=== PATIENT | female | born 1975 | race Caucasian/White ===

== ENCOUNTER 2017-07-12 20:30 | Outpatient (CLI) | payer BC | END 2017-07-12 20:31 | disposition home or self-care (01) | LOC: SLEEPLAB 20:30 | PROVIDERS: ATTEND Family Medicine | DX: G47.33 Obstructive sleep apnea (adult) (pediatric) (principal); E11.9 Type 2 diabetes mellitus without complications; I10 Essential (primary) hypertension; F32.9 Major depressive disorder, single episode, unspecified; E66.9 Obesity, unspecified; F41.9 Anxiety disorder, unspecified | CPT/HCPCS: 95811 ==

== ENCOUNTER 2017-07-14 18:58 | Emergency (ER) | payer BC ==
[2017-07-14] MEDS ORDERED: Ketorolac Tromethamine 30 MG/ML VIAL ONE (20:05)
[2017-07-14] MEDS ORDERED: diphenhydrAMINE 50 MG/ML VIAL ONE (20:05)
[2017-07-14] MEDS ORDERED: Metoclopramide HCl 10 MG/2 ML VIAL ONE (20:05)
--- NOTE | 2017-07-14 20:34 | CT ---
NONCONTRAST HEAD CT: History: Headache. Comparison: None. Technique: Noncontrast head CT is performed from skull base to skull vertex. FINDINGS: No parenchymal hemorrhage. No extraaxial hematoma. No midline shift. Basilar cisterns are patent. Brain volume is age appropriate. Cortical daniels white matter differentiation is preserved. Ventricles and sulci are patent and symmetric. Calvarium is intact. Adequate aeration of the visualized paranasal sinuses. There is sclerosis of joao ateral mastoid air cells. IMPRESSION: No acute intracranial process. POS: [facility]
== END 2017-07-14 22:54 | disposition home or self-care (01) ==
LOC: ERS 18:58
DX: G43.909 Migraine, unspecified, not intractable, without status migrainosus (principal); E11.9 Type 2 diabetes mellitus without complications; I10 Essential (primary) hypertension; Z85.3 Personal history of malignant neoplasm of breast
CPT/HCPCS: 70450; 96361; 96365; 96366; 96375; J1200; J1885; J2765

== ENCOUNTER 2017-07-17 13:23 | Outpatient (CLI) | payer BC ==
[~2017-07-17 13:23] MED LIST: Gadobenate Dimeglumine 529 MG/1 ML (20ML VIAL) ONE
--- NOTE | 2017-07-17 16:12 | MRI ---
MRI OF THE BRAIN WITH AND WITHOUT CONTRAST 07/17/17 INDICATION: Headache with a history of breast cancer. TECHNIQUE: Multiplanar and multisequence MR images were obtained of the brain with and without contrast utilizin g 20 mL of Multihance. Comparisons are made with a noncontrast CT of the brain dated 07/14/17. FINDINGS: No area of restricted diffusion is evident to suggest presence of acute ischemia. No T1 or T2 signal abnormality is seen within the cerebral hemispheres or cerebellum. No area of abnormal enhancement is demonstrated. No area of intracranial hemorrhage is noted. There are appropriate flow voids seen wit hin the major intracranial vessels. Skull and extracranial soft tissues appear within normal limits. IMPRESSION: No acute intracranial abnormality demonstrated. POS: [facility]
== END 2017-07-17 13:24 | disposition home or self-care (01) ==
LOC: MRI 13:23
PROVIDERS: ATTEND Family Medicine
DX: G44.52 New daily persistent headache (NDPH) (principal)
CPT/HCPCS: 70553; A9579

== ENCOUNTER 2017-10-20 07:32 | Outpatient (CLI) | payer BC ==
--- NOTE | 2017-10-20 09:32 | CT ---
CT CHEST WITH IV CONTRAST CT ABDOMEN WITH IV AND ORAL CONTRAST: HISTORY: Right breast cancer. Restaging. COMPARISON: 04/18/17. FINDINGS: Postoperative changes of the right breast and axilla are apparent with interval removal of the right breast mass and axillary adenopathy. Lobular heterogeneous mass of the left thyroid lobe with subste rnal extension is stable. No parenchymal lung mass, infiltrate, pleural fluid, or pneumothorax. No enlarged lymph nodes of the mediastinum. Left subclavian MediPort. The calcified granulomata of the spleen are consistent with healed granulomatous disease. The liver, kidneys, adrenal glands, and pa ncreas are unremarkable. Pelvis was not imaged. IMPRESSION: 1. Postoperative changes right breast and axilla without new abnormalities. 2. No evidence of metastatic disease of the chest or abdomen. 3. Left thyroid lobe mass is stable. POS: [facility]
[2017-10-20] MEDS ORDERED: Iopamidol 370 76% 100 ML VIAL ONE (15:38)
== END 2017-10-20 07:33 | disposition home or self-care (01) ==
LOC: CT 07:32
PROVIDERS: ATTEND Internal Medicine Hematology & Oncology
DX: C50.411 Malignant neoplasm of upper-outer quadrant of right female breast (principal); E07.89 Other specified disorders of thyroid; Z98.890 Other specified postprocedural states
CPT/HCPCS: 71260; 74160

== ENCOUNTER 2018-04-17 02:04 | Inpatient (IN) | payer BC, SELFPAY ==
[2018-04-17] MEDS ORDERED: Famotidine/PF 20 mg/2ml Vial ONE (03:04)
[2018-04-17] MEDS ORDERED: Nitroglycerin 2% Ointment 1 INCH/1 GM Packet ONE (03:04)
[2018-04-17 03:10] LABS: #Basophils 0.1 thou/uL (0.0-0.2); #Eosinphils 0.2 thou/uL (0.0-0.7); #Lymphocytes 3.6 thou/uL (1.20-3.40); #Monocytes 0.8 thou/uL (0.11-0.59); #Neutrophils 7.5 thou/uL (1.40-6.50); %Basophils 1.2 % (0.0-1.0); %Eosinophils 1.3 % (0.0-10.0); %Lymphocytes 29.1 % (21.0-51.0); %Monocytes 6.7 % (0.0-10.0); %Neutrophils 61.7 % (42.0-75.0); Hemoglobin 14.5 g/dL (12.0-16.0); Mean Corpuscular HGB CONC 33.7 g/dL (32.0-36.0); Mean Corpuscular Hemoglobin 28.9 pg (27.0-31.0); Mean Corpuscular Volume 85.7 fL (78.0-98.0); Mean Platelet Volume 7.2 fL (7.4-10.4); Platelet Count 262 thou/uL (130-400); RBC Distribution Width 12.1 % (11.5-14.5); Red Blood Cell (RBC) Count 5.02 mill/uL (4.20-5.40); White Blood Cell (WBC) Count 12.2 thou/uL (4.8-10.8)
[2018-04-17 03:11] LABS: BHCG - Serum Negative (NEGATIVE); Pregs Control Background? CLEAR/WHITE (CLR/WHITE); Pregs Control Bar Appear? YES (CONTROL BAR)
[2018-04-17 03:12] LABS: CKMB 0.5 ng/mL (0-6.6); Troponin I Less than 0.010 ng/mL (< 0.028)
[2018-04-17 03:17] LABS: ALT (SGPT) 22 U/L (8-55); AST (SGOT) 13 U/L (5-34); Albumin 3.7 g/dL (3.5-5.0); Alkaline Phosphatase 95 U/L (40-150); Anion Gap 16 mmol/L (10-20); BUN (Urea Nitrogen) 13 mg/dL (7.0-18.7); Bilirubin, Total 0.4 mg/dL (0.2-1.2); Calc. Creatinine Clearance 0 mL/min (70-130); Calcium 9.4 mg/dL (7.8-10.44); Carbon Dioxide 24 mmol/L (22-29); Chloride 105 mmol/L (98-107); Estimated GFR-MDRD Greater than 90; Glucose 95 mg/dL (70-105); Lipase 9 U/L (8-78); Protein, Total 6.7 g/dL (6.0-8.3); Sodium 142 mmol/L (136-145)
[2018-04-17 03:19] LABS: Potassium 2.5 mmol/L (3.5-5.1)
[2018-04-17] MEDS ORDERED: Vancomycin HCl 500 MG VIAL ONE (03:59)
[2018-04-17] MEDS ORDERED: Piperacillin/Tazobactam 4.5 GM VIAL ONE (03:59)
[2018-04-17] MEDS ORDERED: Potassium Chloride 20 MEQ TAB ONE ×2 (05:02)
[2018-04-17 05:04] LABS: Bilirubin Negative (Negative); Blood, Urine Large (Negative); Clarity Clear (Clear); Glucose, Urine (Dipstick) Negative (Negative); Leukocyte Negative (Negative); Nitrite Negative (Negative); Protein, Urine (Dipstick) Negative (Neg-Trace)
[2018-04-17 05:10] LABS: Bacteria/HPF Rare-Few HPF (None Seen); Hyaline Casts/LPF 0-3 HYALINE CAST LPF (0-3 Hyaline); RBC/HPF 21-50 HPF (0-3); Squamous Epithelial 0-3 HPF (0-3); WBC/HPF 0-3 HPF (0-3)
[2018-04-17] MEDS ORDERED: Ondansetron HCl/PF 4 MG/2 ML Vial IVP PRN ×2 (05:21→15:23)
[2018-04-17] MEDS ORDERED: Fleet Enema 133 ML BOT PR PRN (05:21)
[2018-04-17] MEDS ORDERED: Bisacodyl 5 MG TAB PO PRN (05:21)
[2018-04-17] MEDS ORDERED: Acetaminophen 325 MG TAB PO PRN ×2 (05:21→15:23)
[2018-04-17] MEDS ORDERED: Sodium Chloride 0.9% 1,000 ML IV SCH (05:30)
[2018-04-17 06:31] LABS: Troponin I Less than 0.010 ng/mL (< 0.028)
[2018-04-17 06:33] LABS: Lactic Acid 2.6 mmol/L (0.5-2.2)
--- NOTE | 2018-04-17 07:55 | CT ---
PRELIMINARY REPORT/[facility]/EMERGENCY AFTER HOURS PROCEDURE: EXAM: CT Head Without Intravenous Contrast EXAM DATE/TIME: 04/17/2018 3:25 AM CLINICAL HISTORY: 42 years old, female; Pain; Patient HX: Headache, which she reports has been constant in her whole he ad since she fell out of bed 1 week ago and hit the back of her head on the bed frame. TECHNIQUE: Axial computed tomography images of the head/brain without intravenous contrast. COMPARISON: No relevant prior studies available. FINDINGS: Brain: Normal. No hemorrhage. No significant white matter disease. No edema. Ventricles: Normal. No ventriculomegaly. Bones/joints: Normal. No acute fracture. Sinuses: Normal as visualized. No acute sinusitis. Mastoid air cells: Normal as visualized. No mastoid effusion. Soft tissues: Normal. IMPRESSION: No acute findings. Thank you for allowing us to participate in the care of your patient. Dictated and Authenticated by: Mohan Roca MD 04/17/2018 3:48 AM Central Time ([place] & [place]) FINAL REPORT CT OF HEAD NONCOTNRAST: FINDINGS: Agree with the preliminary interpretation provided above. IMPRESSION: No acute intracranial hemorrhage or mass effect. POS: [facility]
--- NOTE | 2018-04-17 07:59 | CT ---
PRELIMINARY REPORT/[facility]/EMERGENCY AFTER HOURS PROCEDURE: EXAM: CT Angiography Chest With Intravenous Contrast EXAM DATE/TIME: 04/17/2018 3:30 AM CLINICAL HISTORY: 42 years old, female; Pain; Chest pain; Patient HX: History given with no apparent limitations. Patiarabella nt reports she had onset of a sharp pain at the inferior sternum at 7 pm tonight, constant ever since . This is associated with some SOB and a short episode of diaphoresis, denies any nausea, though she reports that she does vomit about once every 3-4 days for the last 3 months since they finished h er breast cancer therapy. She reports she has been in remission from breast cancer for just that long . She also reports that she now feels shaky and light-headed, onset [place]. TECHNIQUE: Axial computed tomographic angiography images of the chest with intravenous contrast using CT angiogr aphy protocol. Coronal reformatted images were created and reviewed. MIP reconstructed images were created and reviewed. CONTRAST: 85 ml of [id number] administered intravenously. COMPARISON: No relevant prior studies available. FINDINGS: Tubes, catheters and devices: Post chest wall port. Pulmonary arteries: Normal. No pulmonary emboli. Aorta: Normal. No aortic aneurysm. No aortic dissection. Lungs: Normal. No consolidation. No masses. Pleural space: Normal. No pneumothorax. No pleural effusion. Heart: Normal. No cardiomegaly. No pericardial effusion. Mediastinum: Esophagus is unremarkable. Thyroid: 5 cm left lobe thyroid mass, potentially malignant. Bones/joints: Unremarkable. No acute fracture. Soft tissues: Prior right mastectomy. Lymph nodes: Unremarkable. No enlarged lymph nodes. Liver: Hepatic steatosis. IMPRESSION: 5 cm left lobe thyroid mass, potentially malignant. Thank you for allowing us to participate in the care of your patient. Dictated and Authenticated by: Mohan Roca MD 04/17/2018 3:52 AM Central Time ([place] & [place]) FINAL REPORT CT ANGIOGRAM CHEST WITH CONTRAST: Date: 04/17/18 HISTORY: Chest pain. COMPARISON: CTA chest dated 03/24/17. TECHNIQUE: CT angiogram chest performed after the intravenous administration of contrast. 3D rendering provided. FINDINGS: Heterogeneous mass left lobe of thyroid. No proximal segmental pulmonary arterial filling defect. IMPRESSION: Findings and impression are concordant with the preliminary report by Jonny. Dedicated ultrasound is r ecommended for the thyroid with potential fine needle aspiration. POS: [facility]
[2018-04-17 08:18] VITALS: BMI 38.6
[2018-04-17] MEDS: Potassium Chloride 20 MEQ/100 ML PREMIX BAG IVPB SCH ×2 (08:45→14:52)
[2018-04-17] MEDS ORDERED: Famotidine 20 MG TAB PO SCH (09:00)
[2018-04-17] MEDS ORDERED: Piperacillin/Tazobactam 4.5 GM in Sodium Chloride 0.9% 100 ML IVPB SCH (12:00)
[2018-04-17 13:37] LABS: Troponin I Less than 0.010 ng/mL (< 0.028)
[2018-04-17] MEDS ORDERED: Vancomycin HCl 1.5 GM in Sodium Chloride 0.9% 250 ML 300 ML IVPB SCH (15:00)
[2018-04-17] MEDS ORDERED: Ondansetron ODT 4 MG TAB PO PRN (15:23)
[2018-04-17] MEDS ORDERED: Dextrose 5% in Water 1,000 ML IV PRN (15:23)
[2018-04-17] MEDS ORDERED: HYDROcodone/Acetaminophen 5/325 mg Tablet PO PRN ×2 (15:23)
[2018-04-17] MEDS ORDERED: Enoxaparin Sodium 40 MG/0.4 ML SYRINGE SC SCH (15:23)
[2018-04-17] MEDS ORDERED: Dextrose 50% Abboject 50 ML SYRINGE SLOW IVP PRN (15:23)
[2018-04-17] MEDS ORDERED: HumaLOG 300 UNITS/3 ML VIAL SC PRN ×2 (15:23)
[2018-04-17] MEDS: Sodium Chloride 0.9% 1,000 ML IV SCH ×2 (15:56→21:46)
[2018-04-17] MEDS: HumaLOG 300 UNITS/3 ML VIAL SC SCH (17:37)
[2018-04-17] MEDS: Cipro 250 MG TAB PO SCH (19:57)
[2018-04-17 20:13] LABS: Potassium 3.6 mmol/L (3.5-5.1)
[2018-04-17] MEDS ORDERED: FLUoxetine HCl 20 MG CAP PO SCH (21:00)
[2018-04-17] MEDS: Famotidine 20 MG TAB PO SCH (21:40)
[2018-04-17] MEDS: metroNIDAZOLE 500 MG TAB PO SCH (21:40)
[2018-04-18 04:44] LABS: #Basophils 0.1 thou/uL (0.0-0.2); #Eosinphils 0.2 thou/uL (0.0-0.7); #Lymphocytes 2.1 thou/uL (1.20-3.40); #Monocytes 0.5 thou/uL (0.11-0.59); #Neutrophils 3.3 thou/uL (1.40-6.50); %Basophils 1.2 % (0.0-1.0); %Eosinophils 2.7 % (0.0-10.0); %Lymphocytes 34.6 % (21.0-51.0); %Monocytes 7.6 % (0.0-10.0); Hemoglobin 12.7 g/dL (12.0-16.0); Mean Corpuscular HGB CONC 33.8 g/dL (32.0-36.0); Mean Corpuscular Hemoglobin 30.6 pg (27.0-31.0); Mean Corpuscular Volume 90.5 fL (78.0-98.0); Mean Platelet Volume 7.3 fL (7.4-10.4); Platelet Count 203 thou/uL (130-400); RBC Distribution Width 12.7 % (11.5-14.5); Red Blood Cell (RBC) Count 4.16 mill/uL (4.20-5.40); White Blood Cell (WBC) Count 6.1 thou/uL (4.8-10.8)
[2018-04-18 04:56] LABS: Anion Gap 13 mmol/L (10-20); BUN (Urea Nitrogen) 5 mg/dL (7.0-18.7); Calc. Creatinine Clearance 219 mL/min (70-130); Calcium 7.5 mg/dL (7.8-10.44); Carbon Dioxide 20 mmol/L (22-29); Chloride 112 mmol/L (98-107); Estimated GFR-MDRD Greater than 90; Glucose 162 mg/dL (70-105); Potassium 3.6 mmol/L (3.5-5.1); Sodium 141 mmol/L (136-145)
[2018-04-18] MEDS: Sodium Chloride 0.9% 1,000 ML IV SCH ×2 (05:43→15:49)
[2018-04-18] MEDS: Cipro 250 MG TAB PO SCH (05:44)
[2018-04-18] MEDS ORDERED: metFORMIN 500 MG TAB PO SCH (08:00)
[2018-04-18] MEDS: metroNIDAZOLE 500 MG TAB PO SCH ×2 (08:19→15:49)
[2018-04-18] MEDS: Famotidine 20 MG TAB PO SCH (08:20)
[2018-04-18] MEDS ORDERED: Losartan/Hydrochlorothiazide 100 mg/25 mg Tablet PO SCH (09:00)
[2018-04-18] MEDS ORDERED: Enoxaparin Sodium 40 MG/0.4 ML SYRINGE SC SCH (09:00)
[2018-04-18] MEDS ORDERED: Alogliptin 25 MG TAB PO SCH (09:00)
[2018-04-18] MEDS: HumaLOG 300 UNITS/3 ML VIAL SC SCH ×2 (09:55→12:38)
[2018-04-18 12:37] VITALS: TEMP 97.7
[2018-04-18 15:54] VITALS: BP 103/58
--- NOTE | 2018-04-29 08:22 | HP ---
PRIMARY CARE PHYSICIAN: Dr. Shane Merrill DATE OF ADMISSION: 04/17/2018 TIME OF SERVICE: 1100. CHIEF COMPLAINT: Chest pain and diarrhea. HISTORY OF PRESENT ILLNESS: Ms. Sanchez is a pleasant 42-year-old female with a history of fibromyalg ia, diabetes mellitus type 2, insulin-dependent, hypertension, and breast cancer, status post chemoth erapy completed on 03/2017 and a mastectomy. The patient was in normal state of health. About 5 days ago and started having increased frequency o f stool that became more watery and runny and has continued until the day of admission. She does vom it about once every 3-4 days, normally for the last 3 months taking the breast cancer therapy and is reportedly in remission. She has been able to keep up with her fluid output, and developed sharp melva n at the inferior aspect of the sternum that she describes as a sharp stabbing sensation that is cons tant and noticed that it is worsened with inspiration. No fevers or chills that she knows of, but di d feel feverish, no sweats, no GI bleeding, denies any hematuria or dysuria and no syncope or presync ope. About 1 week ago, she had a fall when getting out of bed and hit her head on the bed frame and also r eported that she had found out the day of admission and a friend had cervical cancer and thinks part of this may be a stress response. She came to the emergency department for evaluation. Workup showed an elevated white blood cell coun t of 12.2 with a normal differential, lactic acid elevated at 3.2. Potassium is low at 2.5 and the r emainder of her CMP was normal. Cardiac biomarkers were negative. Her urinalysis showed some red ce lls, but no white cells or bacteria. We were subsequently called for admission. Workup in the emergency department also included antibiotics with vancomycin and Zosyn, she received some oral potassium and IV potassium, she was given normal saline and Pepcid and nitro paste and aspi rin. She had a CT angio of the chest that was negative and a brain CT that was negative for acute in tracranial abnormalities or bleed. Currently, she is feeling better and has no other complaints. PAST MEDICAL HISTORY: 1. Fibromyalgia. 2. Diabetes mellitus type 2, insulin-dependent. 3. Breast cancer status post chemotherapy last date of treatment was about 3 months ago. 4. Essential hypertension. 5. Gastroesophageal reflux disease. 6. Anxiety. PAST SURGICAL HISTORY: 1. Mastectomy 04/2017. 2. x3 remotely. 3. Tonsillectomy remotely. 4. MediPort to the left upper chest. HOME MEDICATION: 1. Losartan 100 mg p.o. daily. 2. Metformin 500 mg p.o. b.i.d. 3. Lipitor 20 mg p.o. at bedtime. 4. Fluoxetine 40 mg q.a.m. 5. Famotidine 20 mg p.o. q.6 hours p.r.n. heartburn. 6. Humulin R 12 units subcu t.i.d. with meals. 7. Long-acting insulin. She is not sure if it is Levemir or Lantus 40 units subcutaneously b.i.d. ALLERGIES: CYMBALTA causes her to be loopy. FAMILY HISTORY: Significant for diabetes mellitus type 2 in the patient's mother, otherwise negative . SOCIAL HISTORY: No alcohol, drug or tobacco use. She lives at home with her spouse and children. REVIEW OF SYSTEMS: All systems reviewed and negative except as stated as per HPI. PHYSICAL EXAMINATION: VITAL SIGNS: Temperature 97.6, pulse 73, blood pressure 125/59, respiratory rate 16, satting 99% on room air. GENERAL: She is awake. She is alert and oriented x3. She is obese white female who is well-nourish ed, well-developed, in no acute distress. HEENT: She is normocephalic, atraumatic. Pupils equal, round and react to light bilaterally. Mucou s membranes are moist. No visible lesion. No thrush. NECK: Supple. No lymphadenopathy, JVD, or thyromegaly. CARDIOVASCULAR: Normal S1 and S2. No bruit. LUNGS: Clear to auscultation bilaterally. No wheezing, no rales, no rhonchi. Good air movement wit h chest excursion. No prolonged expiratory phase. ABDOMEN: Soft, it is diffusely tender to the abdominal wall. She has hypoactive bowel sounds presen t in all 4 quadrants. No rebound, rigidity or guarding. EXTREMITIES: No cyanosis or clubbing. She has no edema. SKIN: Moderately dehydrated with mild tenting. She has no rashes or lesions. MUSCULOSKELETAL: Normal to inspection. Large joints appear normal. There is no palpable effusion. NEUROLOGIC: Cranial nerves II-XII are grossly intact with no focal neuro deficits, 5/5 strength and normal speech pattern. LABORATORY DATA: Sodium 142, potassium 2.5, chloride 105, bicarbonate 24, BUN 13, creatinine 0.3, gl ucose 95, calcium 9.4, lactic acid 3.2, mag 1.6. Liver functions are within normal limits. CK-MB 0.5 with troponin I less than 0.010 and verified on repeat 2 hours later. Serum is n egative. Urinalysis showed small amount of ketones, large amount of blood, 21-50 red blood cells. N oted the patient is on her menses. A few red cells, no white blood cells or bacteria. Imaging study; the brain CT showed no acute intracranial abnormalities. CT angio of the thorax showed heterogeneous mass of left thyroid lobe, which is unchanged from prior imaging. ASSESSMENT AND PLAN: 1. Diarrhea, acute gastroenteritis, likely. We will place patient on Cipro, Flagyl at present. We will get stool studies including Clostridium difficile, culture, O&P and leukocytes. We will continu e hydration and hold her home at present. 2. Diabetes mellitus type 2, insulin-dependent. mildly. We will use sliding scale insulin an d at moderate dose for correction. 3. Hypokalemia: Patient was replaced with some potassium in the emergency department. We will cont inue to replace here. Recheck in the morning. 4. Fibromyalgia. 5. Anxiety. 6. Deep venous thrombosis prophylaxis with Lovenox was begun. 7. Gastrointestinal prophylaxis with scheduled Pepcid b.i.d. was begun. Place the patient in observation and reevaluate in the morning.
== END 2018-04-18 16:40 | disposition home or self-care (01) | DRG 872 ==
LOC: SCSER 02:04 → 2NO 05:38
PROVIDERS: ADMIT Internal Medicine; ATTEND Internal Medicine
PROC: 05HY33Z Insertion of Infusion Device into Upper Vein, Percutaneous Approach (ICD-10-PCS; principal; 2018-04-17)
DX: A41.9 Sepsis, unspecified organism (principal); Z91.81 History of falling; Z85.3 Personal history of malignant neoplasm of breast; E11.9 Type 2 diabetes mellitus without complications; I10 Essential (primary) hypertension; F41.9 Anxiety disorder, unspecified; E87.6 Hypokalemia; M79.7 Fibromyalgia; Z79.4 Long term (current) use of insulin; Z90.10 Acquired absence of unspecified breast and nipple; K21.9 Gastro-esophageal reflux disease without esophagitis; K52.9 Noninfective gastroenteritis and colitis, unspecified
CPT/HCPCS: 36415; 36416; 70450; 71275; 80048; 80053; 81003; 81015; 82553; 83605; 83630; 83690; 83735; 84484; 84703; 85025; 87040; 87045; 87046; 87328; 87329; 87449; 87899; 93005; 96361; 96365; 96367; 96375; J1642; J1650; J2543; J3370; J3480; J7050; Q0162; S0028

== ENCOUNTER 2018-04-20 14:50 | Emergency (ER) | payer SELFPAY ==
[2018-04-20 15:26] LABS: #Basophils 0.1 thou/uL (0.0-0.2); #Eosinphils 0.1 thou/uL (0.0-0.7); #Lymphocytes 1.5 thou/uL (1.20-3.40); #Monocytes 0.6 thou/uL (0.11-0.59); #Neutrophils 9.3 thou/uL (1.40-6.50); %Basophils 0.5 % (0.0-1.0); %Eosinophils 0.5 % (0.0-10.0); %Lymphocytes 12.7 % (21.0-51.0); %Monocytes 5.5 % (0.0-10.0); %Neutrophils 80.8 % (42.0-75.0); Mean Corpuscular HGB CONC 34.9 g/dL (32.0-36.0); Mean Corpuscular Hemoglobin 30.6 pg (27.0-31.0); Mean Corpuscular Volume 87.9 fL (78.0-98.0); Mean Platelet Volume 7.3 fL (7.4-10.4); Platelet Count 265 thou/uL (130-400); RBC Distribution Width 12.4 % (11.5-14.5); Red Blood Cell (RBC) Count 4.89 mill/uL (4.20-5.40); White Blood Cell (WBC) Count 11.5 thou/uL (4.8-10.8)
[2018-04-20 16:00] LABS: ALT (SGPT) 44 U/L (8-55); AST (SGOT) 51 U/L (5-34); Albumin 4.1 g/dL (3.5-5.0); Alkaline Phosphatase 104 U/L (40-150); Anion Gap 18 mmol/L (10-20); BUN (Urea Nitrogen) 9 mg/dL (7.0-18.7); Bilirubin, Total 0.7 mg/dL (0.2-1.2); Calc. Creatinine Clearance 0 mL/min (70-130); Carbon Dioxide 23 mmol/L (22-29); Chloride 101 mmol/L (98-107); Estimated GFR-MDRD Greater than 90; Globulin 3.3 g/dL (2.4-3.5); Glucose 229 mg/dL (70-105); Lipase Less than 4 U/L (8-78); Potassium 3.5 mmol/L (3.5-5.1); Protein, Total 7.4 g/dL (6.0-8.3); Sodium 138 mmol/L (136-145)
[2018-04-20 16:03] LABS: Bilirubin Negative (Negative); Blood, Urine Large (Negative); Clarity CLEAR (Clear); Glucose, Urine (Dipstick) Negative (Negative); Leukocyte Trace (Negative); Nitrite Negative (Negative); Protein, Urine (Dipstick) Negative (Neg-Trace); Specific Gravity, Urine 1.015 (1.002-1.036); Urobilinogen 0.2 mg/dL (0.2-1.0)
[2018-04-20 16:05] LABS: Bacteria/HPF None Seen HPF (None Seen); Hyaline Casts/LPF 0-3 HYALINE CAST LPF (0-3 Hyaline); Pathc Cast-AUWi Flag 0.14 (0-2.49); RBC/HPF GREATER THAN 50-TNTC HPF (0-3); Squamous Epithelial 0-3 HPF (0-3); WBC/HPF 0-3 HPF (0-3)
[2018-04-20] MEDS ORDERED: Ondansetron HCl/PF 4 MG/2 ML Vial ONE (17:30)
[2018-04-20] MEDS ORDERED: Acetaminophen 500 MG TAB ONE (17:40)
[2018-04-20] MEDS ORDERED: Sucralfate 1 GM TAB PO SCH (18:00)
[2018-04-20 18:45] LABS: Pregnancy Test - Urine (BHCG) Negative (Negative); Pregu Control Background? CLEAR/WHITE (CLR/WHITE); Pregu Control Bar Appear? YES (CONTROL BAR); Specific Gravity 1.015 (1.002-1.036)
[2018-04-20 19:08] LABS: BHCG - Serum Negative (NEGATIVE); Pregs Control Background? CLEAR/WHITE (CLR/WHITE); Pregs Control Bar Appear? YES (CONTROL BAR)
[2018-04-20] MEDS ORDERED: Sucralfate 1 GM/10 ML UDCUP ONE (19:08)
--- NOTE | 2018-04-20 19:43 | CT ---
CT ABDOMEN AND PELVIS WITH CONTRAST: HISTORY: Abdominal pain and a two day history of nausea, vomiting, and diarrhea. Left lower quadrant abdomina l pain. Generalized weakness. COMPARISON: 12/31/2016 TECHNIQUE: Multiple contiguous axial images were obtained in a CT of the abdomen and pelvis with contrast. Radha nal reformats were performed. FINDINGS: Diffuse fatty infiltration of the liver is seen. The gallbladder, kidneys, adrenal glands, spleen, a nd pancreas are unremarkable. No free air, free fluid, or stranding changes are seen in the abdomen or pelvis. There is a 3.5 cm hypodensity in the left adnexa, which likely represents a left ovarian follicle/cys t. The reproductive organs are otherwise unremarkable. The large and small bowel are unremarkable. The appendix is normal. No abdominal or pelvic lymphadenopathy is seen. Mild degenerative changes are seen in the spine. The abdominal wall soft tissues are unremarkable. A calcified granuloma is seen in the right lung base. IMPRESSION: 1. No evidence of acute intraabdominal/pelvic abnormality. 2. Fatty liver. POS: [facility]
== END 2018-04-20 20:21 | disposition home or self-care (01) ==
LOC: ERS 14:50
DX: K76.0 Fatty (change of) liver, not elsewhere classified (principal); N93.8 Other specified abnormal uterine and vaginal bleeding; N83.202 Unspecified ovarian cyst, left side; R19.7 Diarrhea, unspecified; R11.2 Nausea with vomiting, unspecified; E11.9 Type 2 diabetes mellitus without complications; I10 Essential (primary) hypertension; F41.9 Anxiety disorder, unspecified; Z79.899 Other long term (current) drug therapy; Z79.4 Long term (current) use of insulin
CPT/HCPCS: 74177; 80053; 81003; 81015; 81025; 83690; 84703; 85025; 93005; 96361; 96374; J2405

== ENCOUNTER 2018-08-28 11:35 | Inpatient (IN) | payer BC, SELFPAY ==
[2018-08-28 12:10] LABS: #Eosinphils 0.2 thou/uL (0.0-0.7); #Lymphocytes 2.3 thou/uL (1.20-3.40); #Monocytes 0.6 thou/uL (0.11-0.59); #Neutrophils 5.6 thou/uL (1.40-6.50); %Basophils 0.4 % (0.0-1.0); %Eosinophils 1.8 % (0.0-10.0); %Lymphocytes 26.2 % (21.0-51.0); %Monocytes 6.5 % (0.0-10.0); %Neutrophils 65.1 % (42.0-75.0); Mean Corpuscular HGB CONC 31.8 g/dL (32.0-36.0); Mean Corpuscular Volume 91.1 fL (78.0-98.0); Mean Platelet Volume 7.6 fL (7.4-10.4); Platelet Count 233 thou/uL (130-400); RBC Distribution Width 13.5 % (11.5-14.5); Red Blood Cell (RBC) Count 5.87 mill/uL (4.20-5.40); White Blood Cell (WBC) Count 8.6 thou/uL (4.8-10.8)
[2018-08-28 12:23] LABS: Calcium 9.4 mg/dL (7.8-10.44); Chloride 110 mmol/L (98-107); Potassium 3.9 mmol/L (3.5-5.1); Protein, Total 7.9 g/dL (6.0-8.3); Sodium 135 mmol/L (136-145)
[2018-08-28 12:25] LABS: Bilirubin, Total 0.4 mg/dL (0.2-1.2)
[2018-08-28 12:28] LABS: AST (SGOT) 25 U/L (5-34)
[2018-08-28 12:35] LABS: ALT (SGPT) 45 U/L (8-55); Alkaline Phosphatase 168 U/L (40-150); Anion Gap 21 mmol/L (10-20); BUN (Urea Nitrogen) 8 mg/dL (7.0-18.7); Calc. Creatinine Clearance 0 mL/min (70-130); Estimated GFR-MDRD 68; Glucose 303 mg/dL (70-105)
[2018-08-28 12:38] LABS: Carbon Dioxide 8 mmol/L (22-29)
--- NOTE | 2018-08-28 13:21 | RAD ---
RADIOGRAPH CHEST 1 VIEW RADIOGRAPH ABDOMEN 2 VIEWS: HISTORY: 42-year-old female with nausea. FINDINGS: There are no air space densities or pulmonary edema. The lateral costophrenic angles are sharp. There is no cardiomegaly. There is no evidence of pneumothorax or pneumoperitoneum. There is no evidence of dilated small bowel loops, differential air/fluid levels, or organomegaly. IMPRESSION: 1. No acute cardiopulmonary findings. 2. No evidence of bowel obstruction. liz [] POS: [facility]
[2018-08-28 14:44] LABS: Base Excess-Venous -12.8 mmol/L (0 (+/- 2.5)); Bicarbonate (HCO3v) 13.6 mmol/L (22.0-29.0); CO2 Tension (PvCO2) 32.9 mmHg (41.0-51.0); Calcium, Ionized 1.19 mmol/L (1.12-1.32); Hemoglobin - Calc 17.9 g/dL (12.0-18.0); O2 Tension (PvO2) 48.8 mmHg (35.0-45.0); Potassium 5.4 mmol/L (3.4-4.7); T. Carbon Dioxide 14.6 mmol/L (1.0-85.0); pH (Venous) 7.225 (7.35-7.45)
[2018-08-28] MEDS ORDERED: Sodium Chloride 0.9% 1,000 ML IV SCH (15:15)
[2018-08-28] MEDS ORDERED: HUMULIN R 100 UNITS in Sodium Chloride 0.9% 100 ML IVPB SCH ×2 (15:30→23:54)
[2018-08-28] MEDS ORDERED: Ondansetron PF 4 MG/2 ML Vial ONE (16:43)
[2018-08-28 20:04] LABS: Bilirubin Negative (Negative); Blood, Urine Trace (Negative); Clarity CLEAR (Clear); Glucose, Urine (Dipstick) >=1000 mg/dL (Negative); Leukocyte Negative (Negative); Nitrite Negative (Negative); Protein, Urine (Dipstick) 30 mg/dL (Neg-Trace); Specific Gravity, Urine 1.024 (1.002-1.036); Urobilinogen 0.2 mg/dL (0.2-1.0)
[2018-08-28 20:07] LABS: Bacteria/HPF 1+ HPF (None Seen); Hyaline Casts/LPF 0-3 HYALINE CAST LPF (0-3 Hyaline); Pathc Cast-AUWi Flag 0.87 (0-2.49)
[2018-08-28] MEDS ORDERED: NS 0.9% w/ 20 MEQ KCL 1,000 ML/1,000 ML BAG IV PRN (20:14)
--- NOTE | 2018-08-28 22:48 | HP ---
PRIMARY CARE PHYSICIAN: Shane Merrill MD. CHIEF COMPLAINT: Dizziness, nausea, and malaise. HISTORY OF PRESENT ILLNESS: This is a 42-year-old white female with a known history of longstanding type 2 diabetes mellitus, insulin dependent, who reports that she is not always very good about taking her medications. She was previously on 80 units of long-acting insulin once a day and then 14 units of short-acting before each meal; however, her insurance ran out, so she stopped taking the long-acting, then about 2 weeks ago, she decided to go on a ketosis diet and was worried because she was not eating carbs that her blood sugar down, so she stopped all of her regular insulin completely. She has also not taken any of her metformin for the last couple of weeks because she keeps forgetting. The patient reports that she started to feel have a decreased appetite and feel a little bit nauseated about the last week. Over the last 3 days, she has felt generalized malaise and has had a persistent headache. She also had a little bit of sore throat. No fever or other symptoms. She started feeling worse, so she came into the emergency room. In the ER, she was found to have elevated blood sugar in the 300s and to have a low bicarb and gap acidosis with a venous pH of 7.22 and an elevated beta hydroxybutyrate of 5.59, so she is being admitted for diabetic ketoacidosis. PAST MEDICAL HISTORY: 1. Diabetes mellitus type 2, insulin dependent. 2. Fibromyalgia. 3. Breast cancer, status post mastectomy and chemotherapy. Last treatment was in the middle of last year due for her 6-month post chemo followup next week. 4. Essential hypertension. 5. Gastroesophageal reflux disease. PAST PSYCHIATRIC HISTORY: Anxiety. PAST SURGICAL HISTORY: 1. Mastectomy in 04/2017. 2. x3. 3. Tonsillectomy. 4. MediPort, left upper chest. SOCIAL HISTORY: The patient is , lives with her spouse and children. She denies tobacco, alcohol, or illicit drug use. FAMILY HISTORY: Significant for diabetes mellitus type 2 in the patient's mother and then several family members who had lung cancer. ALLERGIES: CYMBALTA MAKES HER GO CRAZY. CURRENT MEDICATIONS: 1. Losartan 100 mg daily. 2. Metformin 500 mg twice a day. 3. Lipitor 20 mg at bedtime. 4. Fluoxetine 40 mg daily. 5. Famotidine 20 mg as needed for heartburn. 6. Humulin R 14 units subcu before each meal. 7. Long-acting insulin either Lantus or Levemir 80 units daily. She has had previously done 40 units of NPH twice a day as an alternative. REVIEW OF SYSTEMS: CONSTITUTIONAL: No fevers, no chills. EYES: No double vision or blurred vision. ENT: No congestion or drainage. She has a little bit of sore throat. CARDIOVASCULAR: She has some left anterior shoulder and chest pain, which is chronic from fibromyalgia and a shoulder injury from a couple of years ago and nothing new there. No palpitations or racing heart. PULMONARY: No coughing, wheezing, or shortness of breath. GASTROINTESTINAL: She feels nauseated, but no vomiting and not really eat anything for the last 3 days. No diarrhea. She did previously have some loose bowel movements, but then has not had a stool at all for the last week. Does not feel like she needs to go. GENITOURINARY: No dysuria or hematuria. She had some polyuria until she switched to the ketotic diet. MUSCULOSKELETAL: She has chronic muscle aches and joint pain from her fibromyalgia. Nothing new. No changes. SKIN: No rashes or lesions. NEUROLOGIC: No numbness, tingling, or focal weakness, just headaches as per HPI. PHYSICAL EXAMINATION: VITAL SIGNS: Blood pressure 130/93; pulse 121, it is what was initially recorded, but she is actually now running more in the 90s on my exam after a liter of fluid; respirations 22, temperature 98.1, and O2 saturation 97% on room air. GENERAL: This is a well-developed, well-nourished white female, who appears in no distress. HEENT: Pupils are equal, round, and reactive to light. Oropharynx is dry. Dry mucous membranes. No erythema or exudate of the posterior oropharynx. NECK: Supple. No lymphadenopathy. No thyroid nodules or enlargement. No JVD. HEART: Tachycardic, regular rhythm. No murmurs, rubs, or gallops. LUNGS: Clear to auscultation bilaterally. No wheezes, crackles, or rhonchi. ABDOMEN: Soft, nontender to palpation. Normoactive bowel sounds. No hepatosplenomegaly or other masses. EXTREMITIES: No clubbing, cyanosis, or edema. SKIN: No rashes or lesions noted. NEUROLOGIC: She has intact strength and sensation in all extremities and no facial droop. PSYCHIATRIC: Alert and oriented x3. Normal mood and affect. LABORATORY DATA: CBC with a hemoglobin of 17, hematocrit of 53, the rest is normal. Blood gas did show bicarbonate of 13. VBG; pH of 7.22, pCO2 of 32, and pO2 of 48. Complete metabolic panel is notable for sodium of 135, potassium of 3.9, chloride of 110, carbon dioxide of 8, anion gap of 21, BUN and creatinine are normal, and glucose was 303. Alkaline phosphatase is 168. The rest of the complete metabolic panel was normal. Her beta hydroxybutyrate was 5.59. She had an acute abdominal series and chest x-ray did show no acute cardiopulmonary process and no intestinal distention or evidence of obstruction. ASSESSMENT: 1. Diabetic ketoacidosis. This is unusual in a type 2 diabetic; however, she probably has a low insulin production from pancreas given the longstanding nature of her diabetes and the fact that she has become so insulin dependent, also mainly contributing is the fact that she in addition to not taken any insulin at all, she has been eating a very ketotic diet which may have contributed to her ketoacidosis. She appears dehydrated, but not severely. She has no acute renal failure at this time, so she may respond quickly with hydration and reintroduction of insulin. We will put her on the diabetic ketoacidosis protocol in the IMCU. I expect her to improve quickly. 2. Hypertension. Resume the patient's home medication. 3. Hyperlipidemia. We will resume the patient's statin. 4. History of gastroesophageal reflux disease. We will start the patient on Pepcid twice a day. 5. Deep venous thrombosis prophylaxis. The patient on sequential compression devices while in bed and Lovenox subcu. CODE STATUS: The patient is a full code. Job ID: [id number]
[2018-08-28 23:22] LABS: Anion Gap 16 mmol/L (10-20); BUN (Urea Nitrogen) 7 mg/dL (7.0-18.7); Calc. Creatinine Clearance 0 mL/min (70-130); Calcium 9.1 mg/dL (7.8-10.44); Carbon Dioxide 15 mmol/L (22-29); Chloride 115 mmol/L (98-107); Estimated GFR-MDRD Greater than 90; Potassium 3.5 mmol/L (3.5-5.1); Sodium 142 mmol/L (136-145)
[2018-08-28 23:28] LABS: Glucose 59 mg/dL (70-105)
[2018-08-28] MEDS ORDERED: Senokot S 8.6-50 MG TAB PO PRN (23:54)
[2018-08-28] MEDS ORDERED: Acetaminophen 325 MG TAB PO PRN (23:54)
[2018-08-28] MEDS ORDERED: Acetaminophen 650 MG Suppository PR PRN (23:54)
[2018-08-28] MEDS ORDERED: Sodium Chloride 0.9% 1,000 ML IV PRN ×4 (23:54)
[2018-08-28] MEDS ORDERED: Ondansetron PF 4 MG/2 ML Vial IVP PRN (23:54)
[2018-08-28] MEDS ORDERED: Ondansetron ODT 4 MG TAB PO PRN (23:54)
[2018-08-28] MEDS ORDERED: NS 0.9% w/ 20 MEQ KCL 1,000 ML IV PRN ×2 (23:54)
[2018-08-28] MEDS ORDERED: Dextrose 5 %-0.45 % NaCl 1,000 ML IV PRN (23:54)
[2018-08-28] MEDS ORDERED: CCU Electrolyte Replacement 1 EACH IVPB ONE (23:54)
[2018-08-29] MEDS ORDERED: Potassium Chloride 20 MEQ TAB PO PRN (00:17)
[2018-08-29] MEDS ORDERED: CCU ELECTROLYTE REPLACEMENT PROTOCOL FS PRN (00:17)
[2018-08-29] MEDS ORDERED: Magnesium Oxide 400 MG TAB PO PRN ×2 (00:17)
[2018-08-29] MEDS ORDERED: Potassium Chloride 40 MEQ in Sodium Chloride 0.9% 250 ML 250 ML IVPB PRN (00:17)
[2018-08-29] MEDS ORDERED: Potassium Phosphate 9 MMOL in Sodium Chloride 0.9% 100 ML IVPB PRN (00:17)
[2018-08-29] MEDS ORDERED: Magnesium 2 GM/NS 0.9% 100 ML 2 GM in Premix Bag 1 BAG IVPB PRN (00:17)
[2018-08-29] MEDS ORDERED: Potassium Chloride 40 MEQ in Premix Bag 1 BAG IVPB PRN (00:17)
[2018-08-29] MEDS ORDERED: Potassium Phosphate 12 MMOL in Sodium Chloride 0.9% 250 ML 250 ML IV PRN (00:17)
[2018-08-29] MEDS ORDERED: Potassium Phosphate 15 MMOL in Sodium Chloride 0.9% 250 ML 250 ML IV PRN (00:17)
[2018-08-29] MEDS ORDERED: Atorvastatin Calcium 20 MG TAB PO SCH (00:30)
[2018-08-29] MEDS ORDERED: Famotidine 20 MG TAB PO SCH ×2 (00:30→10:30)
[2018-08-29] MEDS: D5 1/2 NS w/20 mEq KCL 1,000 ML IV PRN ×3 (00:34→10:42)
[2018-08-29 02:07] LABS: Anion Gap 15 mmol/L (10-20); BUN (Urea Nitrogen) 7 mg/dL (7.0-18.7); Calc. Creatinine Clearance 146 mL/min (70-130); Calcium 8.7 mg/dL (7.8-10.44); Carbon Dioxide 14 mmol/L (22-29); Chloride 113 mmol/L (98-107); Estimated GFR-MDRD Greater than 90; Glucose 177 mg/dL (70-105); Potassium 3.3 mmol/L (3.5-5.1); Sodium 139 mmol/L (136-145)
[2018-08-29 07:22] LABS: Phosphorus 2.1 mg/dL (2.3-4.7)
[2018-08-29 07:24] LABS: Anion Gap 13 mmol/L (10-20); BUN (Urea Nitrogen) 6 mg/dL (7.0-18.7); Calc. Creatinine Clearance 148 mL/min (70-130); Calcium 8.9 mg/dL (7.8-10.44); Carbon Dioxide 16 mmol/L (22-29); Chloride 113 mmol/L (98-107); Estimated GFR-MDRD Greater than 90; Glucose 159 mg/dL (70-105); Potassium 3.6 mmol/L (3.5-5.1); Sodium 138 mmol/L (136-145)
[2018-08-29] MEDS ORDERED: Losartan 25 MG TAB PO SCH (09:00)
[2018-08-29] MEDS: FLUoxetine HCl 20 MG CAP PO SCH (09:35)
[2018-08-29] MEDS: Enoxaparin Sodium 40 MG/0.4 ML SYRINGE SC SCH (09:35)
[2018-08-29] MEDS ORDERED: Mag-Al 1200 mg/1200 mg/30 ML UDCUP PO PRN (10:29)
[2018-08-29] MEDS ORDERED: Calcium Carbonate 500 MG ChewTAB PO PRN (10:29)
[2018-08-29 11:59] LABS: #Eosinphils 0.2 thou/uL (0.0-0.7); #Lymphocytes 1.7 thou/uL (1.20-3.40); #Monocytes 0.5 thou/uL (0.11-0.59); #Neutrophils 4.5 thou/uL (1.40-6.50); %Basophils 0.6 % (0.0-1.0); %Eosinophils 2.9 % (0.0-10.0); %Lymphocytes 25.1 % (21.0-51.0); %Monocytes 6.6 % (0.0-10.0); %Neutrophils 64.8 % (42.0-75.0); Hemoglobin 15.8 g/dL (12.0-16.0); Mean Corpuscular HGB CONC 33.5 g/dL (32.0-36.0); Mean Corpuscular Hemoglobin 29.4 pg (27.0-31.0); Mean Corpuscular Volume 87.7 fL (78.0-98.0); Mean Platelet Volume 7.8 fL (7.4-10.4); Platelet Count 195 thou/uL (130-400); RBC Distribution Width 13.4 % (11.5-14.5); Red Blood Cell (RBC) Count 5.37 mill/uL (4.20-5.40); White Blood Cell (WBC) Count 6.9 thou/uL (4.8-10.8)
[2018-08-29 12:09] LABS: Anion Gap 13 mmol/L (10-20); BUN (Urea Nitrogen) 4 mg/dL (7.0-18.7); Calc. Creatinine Clearance 153 mL/min (70-130); Calcium 9.1 mg/dL (7.8-10.44); Carbon Dioxide 17 mmol/L (22-29); Chloride 112 mmol/L (98-107); Estimated GFR-MDRD Greater than 90; Glucose 158 mg/dL (70-105); Magnesium 1.5 mg/dL (1.6-2.6); Potassium 3.9 mmol/L (3.5-5.1); Sodium 138 mmol/L (136-145)
[2018-08-29] MEDS ORDERED: Dextrose 50% Abboject 50 ML SYRINGE SLOW IVP PRN (12:13)
[2018-08-29] MEDS ORDERED: DC Electrolyte Protocol FS ONE (12:13)
[2018-08-29] MEDS ORDERED: Dextrose 5% in Water 1,000 ML IV PRN (12:13)
[2018-08-29] MEDS ORDERED: Insulin Glargine 10 UNITS in Pre-Filled Syringe 1 EACH SC SCH (12:15)
[2018-08-29] MEDS ORDERED: Magnesium 2 GM/50 ML 2 GM in Premix Bag 1 BAG IVPB SCH (12:45)
[2018-08-29] MEDS: 1/2 NS w/KCL 20 mEq 1,000 ML IV SCH ×2 (13:20→21:18)
[2018-08-29] MEDS: Insulin Regular 300 UNITS/3 ML VIAL SC PRN ×2 (16:42→20:31)
[2018-08-29 19:05] VITALS: BMI 32.5
[2018-08-29] MEDS: Insulin Glargine 10 UNITS in Pre-Filled Syringe 1 EACH SC SCH (20:31)
--- NOTE | 2018-08-29 20:55 | PDOC.PN ---
- Subjective Encounter Start Date: 08/29/18 Encounter Start Time: 11:15 Patient seen and examined for DKA. No new complaints. No overnight events - Objective Resuscitation Status - Order Detail: 08/28/18 15:47 Resuscitation Status Routine Resuscitation Status: FULL: Full Resuscitation MAR Reviewed: Yes Vital Signs & Weight: Vital Signs (12 hours) Temp Pulse Resp BP Pulse Ox 08/29/18 19:45 97.8 F 97 18 106/69 96 08/29/18 16:00 97.5 F L 92 18 109/79 98 08/29/18 15:00 95 08/29/18 14:42 97.5 F L 87 16 108/73 95 08/29/18 11:00 98.6 F 91 20 107/80 97 Weight Admit Weight 197 lb 1.6 oz Weight 195 lb 6 oz I&O: 08/28/18 08/29/18 08/30/18 06:59 06:59 06:59 Intake Total 2346 2820 Output Total 950 750 Balance 1396 2070 Result Diagrams: 08/29/18 11:48 08/30/18 05:47 Additional Labs: Accuchecks 08/29/18 08/29/18 08/29/18 19:56 16:18 11:37 POC Glucose 286 H 244 H 142 H 08/29/18 08/29/18 08/29/18 10:46 09:34 08:44 POC Glucose 144 H 178 H 211 H 08/29/18 08/29/18 08/29/18 07:11 06:00 05:01 POC Glucose 152 H 185 H 220 H 08/29/18 08/29/18 08/29/18 04:06 03:01 01:58 POC Glucose 244 H 224 H 200 H 08/29/18 08/28/18 08/28/18 01:04 23:59 23:07 POC Glucose 178 H 121 H 75 08/28/18 22:36 POC Glucose 57 L* EKG Reviewed by me: Yes (Tele SR) Phys Exam - Physical Examination Constitutional: NAD HEENT: moist MMs Neck: no JVD Respiratory: no wheezing, no rales, no rhonchi, clear to auscultation bilateral Cardiovascular: RRR, no rub no heaves/pulsations Gastrointestinal: soft, non-tender, positive bowel sounds Musculoskeletal: no edema Neurological: non-focal, normal sensation, moves all 4 limbs Psychiatric: normal affect, A&O x 3 Dx/Plan (1) DKA (diabetic ketoacidoses) Code(s): E13.10 - OTH DIABETES MELLITUS WITH KETOACIDOSIS WITHOUT COMA Status : Acute Qualifiers: Diabetes mellitus type: type 2 (2) HTN (hypertension) Code(s): I10 - ESSENTIAL (PRIMARY) HYPERTENSION Status: Chronic (3) Obesity (BMI 30.0-34.9) Code(s): E66.9 - OBESITY, UNSPECIFIED Status: Acute (4) Electrolyte abnormality Code(s): E87.8 - OTH DISORDERS OF ELECTROLYTE AND FLUID BALANCE, NEC Status: Acute (5) Fibromyalgia Status: Chronic - Plan cont current plan of care, DVT proph w/SCDs Change insulin drip to SQ -: Insulin slding scale -: Glucose check ACHS -: AM labs -: Replace electrolyes, Transfer to medical, Pediatric Sports Medicine Specialist consult, Counselled. Review of Systems - Review of Systems Respiratory: negative: Cough, Dry, Shortness of Breath, Hemoptysis, SOB with Excertion, Pleuritic Pain, Sputum, Wheezing Cardiovascular: negative: chest pain, palpitations, orthopnea, paroxysmal nocturnal dyspnea, edema, light headedness, other Gastrointestinal: negative: Nausea, Vomiting, Abdominal Pain, Diarrhea, Constipation, Melena, Hematochezia, Other - Medications/Allergies Allergies/Adverse Reactions: Allergies Allergy/AdvReac Type Severity Reaction Status Date / Time duloxetine [From Cymbalta] Allergy Verified 01/15/17 09:19 Medications: Current Medications Acetaminophen (Tylenol) 650 mg PO Q4H PRN PRN Reason: Headache/Fever/Mild Pain (1-3) Last Admin: 08/29/18 00:35 Dose: 650 mg Acetaminophen (Tylenol) 650 mg MD Q4H PRN PRN Reason: Headache/Fever/Mild Pain (1-3) Al Hydroxide/Mg Hydroxide (Maalox) 30 ml PO Q6H PRN PRN Reason: Heartburn or Indigestion Atorvastatin Calcium (Lipitor) 20 mg PO HS [facility] Calcium Carbonate (Tums) 1,000 mg PO Q4H PRN PRN Reason: Heartburn or Indigestion Last Admin: 08/29/18 10:42 Dose: 1,000 mg Dextrose/Water (Dextrose 50%) 25 gm SLOW IVP PRN PRN PRN Reason: Hypoglycemia Enoxaparin Sodium (Lovenox) 40 mg SC 0900 [facility] Last Admin: 08/29/18 09:35 Dose: 40 mg Famotidine (Pepcid) 20 mg PO BID [facility] Fluoxetine HCl (Prozac) 40 mg PO DAILY [facility] Last Admin: 08/29/18 09:35 Dose: 40 mg Glucagon (Glucagon) 1 mg IM PRN PRN PRN Reason: Hypoglycemia Potassium Chloride/Sodium Chloride (1/2 Ns W/Kcl 20 Meq) 1,000 mls @ 125 mls/ hr IV .Q8H [facility] Last Admin: 08/29/18 13:20 Dose: 1,000 mls Insulin Glargine 10 units/ (Miscellaneous Medication) 0.1 mls @ 0 mls/hr SC BID [facility] Last Admin: 08/29/18 20:31 Dose: 0.1 mls Dextrose/Water (D5w) 1,000 mls @ 0 mls/hr IV .Q0M PRN PRN Reason: Hypoglycemia Insulin Human Regular (Humulin R) 0 units SC .MILD SLIDING SCALE PRN PRN Reason: Mild Correctional Scale Last Admin: 08/29/18 16:42 Dose: 3 unit Insulin Human Regular (Humulin R) 0 units SC .BEDTIME SLIDING SC PRN PRN Reason: Bedtime Correctional Scale Last Admin: 08/29/18 20:31 Dose: 3 unit Losartan Potassium (Cozaar) 100 mg PO DAILY [facility] Last Admin: 08/29/18 09:35 Dose: 100 mg Ondansetron HCl (Zofran Odt) 4 mg PO Q6H PRN PRN Reason: Nausea/Vomiting Ondansetron HCl (Zofran) 4 mg IVP Q6H PRN PRN Reason: Nausea/Vomiting Senna/Docusate Sodium (Senokot S) 2 tab PO BID PRN PRN Reason: Constipation
[2018-08-30] MEDS: Insulin Regular 300 UNITS/3 ML VIAL SC PRN ×5 (03:05→20:32)
[2018-08-30] MEDS: 1/2 NS w/KCL 20 mEq 1,000 ML IV SCH (04:53)
[2018-08-30 06:55] LABS: Phosphorus 2.2 mg/dL (2.3-4.7)
[2018-08-30 07:01] LABS: Anion Gap 12 mmol/L (10-20); BUN (Urea Nitrogen) Less than 4 mg/dL (7.0-18.7); Calc. Creatinine Clearance 216 mL/min (70-130); Calcium 6.7 mg/dL (7.8-10.44); Carbon Dioxide 17 mmol/L (22-29); Chloride 105 mmol/L (98-107); Estimated GFR-MDRD Greater than 90; Glucose 213 mg/dL (70-105); Magnesium 0.9 mg/dL (1.6-2.6); Potassium 7.7 mmol/L (3.5-5.1); Sodium 126 mmol/L (136-145)
[2018-08-30] MEDS ORDERED: Magnesium 2 GM/50 ML 2 GM in Premix Bag 1 BAG IVPB SCH (07:15)
[2018-08-30] MEDS ORDERED: Magnesium Sulfate 2 GM in Sodium Chloride 0.9% 100 ML IVPB SCH (07:15)
[2018-08-30] MEDS ORDERED: Magnesium Sulfate 4 GM in Sodium Chloride 0.9% 250 ML 250 ML IVPB SCH (07:15)
[2018-08-30 07:58] LABS: Anion Gap 16 mmol/L (10-20); BUN (Urea Nitrogen) Less than 4 mg/dL (7.0-18.7); Calc. Creatinine Clearance 159 mL/min (70-130); Calcium 8.7 mg/dL (7.8-10.44); Carbon Dioxide 18 mmol/L (22-29); Chloride 106 mmol/L (98-107); Estimated GFR-MDRD Greater than 90; Glucose 266 mg/dL (70-105); Magnesium 1.5 mg/dL (1.6-2.6); Potassium 3.6 mmol/L (3.5-5.1); Sodium 136 mmol/L (136-145)
[2018-08-30] MEDS: Famotidine 20 MG TAB PO SCH ×2 (08:17→20:31)
[2018-08-30] MEDS: FLUoxetine HCl 20 MG CAP PO SCH (08:17)
[2018-08-30] MEDS: Enoxaparin Sodium 40 MG/0.4 ML SYRINGE SC SCH (08:18)
[2018-08-30] MEDS: Insulin Glargine 10 UNITS in Pre-Filled Syringe 1 EACH SC SCH (08:18)
[2018-08-30] MEDS ORDERED: Polyethylene Glycol 3350 17 GM Packet PO PRN (14:49)
--- NOTE | 2018-08-30 14:51 | PDOC.PN ---
- Subjective Encounter Start Date: 08/30/18 Encounter Start Time: 14:00 Patient seen and examined for DKA. Some abd cramping. No N/V. No BM x 4 days. No new complaints. No overnight events - Objective Resuscitation Status - Order Detail: 08/28/18 15:47 Resuscitation Status Routine Resuscitation Status: FULL: Full Resuscitation MAR Reviewed: Yes Vital Signs & Weight: Vital Signs (12 hours) Temp Pulse Resp BP Pulse Ox 08/30/18 08:26 96 08/30/18 08:00 97.9 F 87 18 104/72 96 08/30/18 04:00 98 F 96 18 90/60 97 Weight Admit Weight 197 lb 1.6 oz Weight 195 lb 6 oz I&O: 08/29/18 08/30/18 08/31/18 06:59 06:59 06:59 Intake Total 2346 4800 Output Total 950 750 Balance 1396 4050 Result Diagrams: 08/29/18 11:48 08/30/18 07:16 Additional Labs: Accuchecks 08/30/18 08/30/18 08/30/18 11:42 04:34 02:24 POC Glucose 256 H 224 H 230 H 08/29/18 08/29/18 19:56 16:18 POC Glucose 286 H 244 H Laboratory Tests 08/30/18 08/30/18 05:47 07:16 Phosphorus 2.2 L Magnesium 1.5 L Phys Exam - Physical Examination Constitutional: NAD Respiratory: no wheezing, no rales, no rhonchi Cardiovascular: RRR, no rub Gastrointestinal: soft, non-tender, positive bowel sounds Musculoskeletal: no edema Neurological: moves all 4 limbs Dx/Plan (1) DKA (diabetic ketoacidoses) Code(s): E13.10 - OTH DIABETES MELLITUS WITH KETOACIDOSIS WITHOUT COMA Status : Acute Qualifiers: Diabetes mellitus type: type 2 (2) HTN (hypertension) Code(s): I10 - ESSENTIAL (PRIMARY) HYPERTENSION Status: Chronic (3) Obesity (BMI 30.0-34.9) Code(s): E66.9 - OBESITY, UNSPECIFIED Status: Acute (4) Electrolyte abnormality Code(s): E87.8 - OTH DISORDERS OF ELECTROLYTE AND FLUID BALANCE, NEC Status: Acute Comment: Hypomagnessemia/Hypophosphatemia (5) Fibromyalgia Status: Chronic - Plan DVT proph w/SCDs Increase Lantus dose to 20 units BID -: Replace Phosphorus and Magnessium -: AM labs -: DC in AM if stable Review of Systems - Review of Systems Respiratory: negative: Cough, Dry, Shortness of Breath, Hemoptysis, SOB with Excertion, Pleuritic Pain, Sputum, Wheezing Cardiovascular: negative: chest pain, palpitations, orthopnea, paroxysmal nocturnal dyspnea, edema, light headedness, other Gastrointestinal: Abdominal Pain, Constipation. negative: Nausea, Vomiting, Diarrhea, Melena, Hematochezia, Other Genitourinary: negative: Dysuria, Frequency, Incontinence, Hematuria, Retention , Other - Medications/Allergies Allergies/Adverse Reactions: Allergies Allergy/AdvReac Type Severity Reaction Status Date / Time duloxetine [From Cymbalta] Allergy Verified 01/15/17 09:19 Medications: Current Medications Acetaminophen (Tylenol) 650 mg PO Q4H PRN PRN Reason: Headache/Fever/Mild Pain (1-3) Last Admin: 08/29/18 00:35 Dose: 650 mg Acetaminophen (Tylenol) 650 mg [place] Q4H PRN PRN Reason: Headache/Fever/Mild Pain (1-3) Al Hydroxide/Mg Hydroxide (Maalox) 30 ml PO Q6H PRN PRN Reason: Heartburn or Indigestion Last Admin: 08/30/18 04:51 Dose: 30 ml Atorvastatin Calcium (Lipitor) 20 mg PO [facility] Calcium Carbonate (Tums) 1,000 mg PO Q4H PRN PRN Reason: Heartburn or Indigestion Last Admin: 08/29/18 10:42 Dose: 1,000 mg Dextrose/Water (Dextrose 50%) 25 gm SLOW IVP PRN PRN PRN Reason: Hypoglycemia Famotidine (Pepcid) 20 mg PO BID [facility] Last Admin: 08/30/18 08:17 Dose: 20 mg Fluoxetine HCl (Prozac) 40 mg PO DAILY [facility] Last Admin: 08/30/18 08:17 Dose: 40 mg Glucagon (Glucagon) 1 mg IM PRN PRN PRN Reason: Hypoglycemia Dextrose/Water (D5w) 1,000 mls @ 0 mls/hr IV .Q0M PRN PRN Reason: Hypoglycemia Insulin Glargine 20 units/ (Miscellaneous Medication) 0.2 mls @ 0 mls/hr SC [facility] Insulin Glargine 20 units/ (Miscellaneous Medication) 0.2 mls @ 0 mls/hr SC QAM [facility] Insulin Human Regular (Humulin R) 0 units SC .MILD SLIDING SCALE PRN PRN Reason: Mild Correctional Scale Last Admin: 08/30/18 12:17 Dose: 4 unit Insulin Human Regular (Humulin R) 0 units SC .BEDTIME SLIDING SC PRN PRN Reason: Bedtime Correctional Scale Last Admin: 08/30/18 03:05 Dose: 2 unit Ondansetron HCl (Zofran Odt) 4 mg PO Q6H PRN PRN Reason: Nausea/Vomiting Last Admin: 08/30/18 08:26 Dose: 4 mg Ondansetron HCl (Zofran) 4 mg IVP Q6H PRN PRN Reason: Nausea/Vomiting Polyethylene Glycol (Miralax) 17 gm PO DAILY PRN PRN Reason: Constipation Senna/Docusate Sodium (Senokot S) 2 tab PO BID PRN PRN Reason: Constipation Last Admin: 08/30/18 04:56 Dose: 2 tab
[2018-08-30] MEDS: Senokot S 8.6-50 MG TAB PO SCH (20:31)
[2018-08-30] MEDS ORDERED: Atorvastatin Calcium 20 MG TAB PO SCH (21:00)
[2018-08-30] MEDS ORDERED: Insulin Glargine 20 UNITS in Pre-Filled Syringe SC SCH (21:00)
[2018-08-31] MEDS: Insulin Regular 300 UNITS/3 ML VIAL SC PRN ×2 (04:51→12:29)
[2018-08-31 07:20] LABS: Anion Gap 15 mmol/L (10-20); BUN (Urea Nitrogen) 6 mg/dL (7.0-18.7); Calc. Creatinine Clearance 175 mL/min (70-130); Calcium 8.9 mg/dL (7.8-10.44); Carbon Dioxide 26 mmol/L (22-29); Chloride 104 mmol/L (98-107); Estimated GFR-MDRD Greater than 90; Glucose 248 mg/dL (70-105); Sodium 142 mmol/L (136-145)
[2018-08-31 08:43] LABS: Magnesium 1.6 mg/dL (1.6-2.6); Phosphorus 4.1 mg/dL (2.3-4.7)
[2018-08-31] MEDS: Senokot S 8.6-50 MG TAB PO SCH (08:43)
[2018-08-31] MEDS: FLUoxetine HCl 20 MG CAP PO SCH (08:44)
[2018-08-31] MEDS: Famotidine 20 MG TAB PO SCH (08:44)
[2018-08-31] MEDS ORDERED: Insulin Glargine 25 UNITS in Pre-Filled Syringe 1 EACH SC SCH (09:00)
[2018-08-31] MEDS ORDERED: Insulin Glargine 20 UNITS in Pre-Filled Syringe SC SCH (09:00)
[2018-08-31 15:06] VITALS: BP 95/66; TEMP 97.8
--- NOTE | 2018-09-01 04:29 | DIS ---
DATE OF ADMISSION: 08/28/2018 DATE OF DISCHARGE: 08/31/2018 DISCHARGE DISPOSITION: Home. FOLLOWUP: Follow up with primary care physician, Dr. Merrill, in 1 week. Repeat basic metabolic panel after 1 week is recommended. Primary care physician advised to follow. ALLERGIES: CYMBALTA. DISCHARGE MEDICATION: 1. Lantus 25 units b.i.d. 2. Potassium chloride 20 mEq daily for the next three days. 3. All other home medications were left unchanged. BRIEF HOSPITAL COURSE: Patient is a 42-year-old female who presented to the emergency room on August 28, 2018, with dizziness, nausea, and vomiting. Please note that patient discontinued taking her insulin 2 weeks ago and decided to go on keto diet. Her workup was consistent with diabetic ketoacidosis with venous pH of 7.22 and bicarbonate of 5.59. She was admitted in the intermediate care unit. She was placed on insulin drip that was later changed to subcu insulin. She also had electrolyte abnormalities which were replaced. She was extensively counseled to be compliant with insulin. She will start with 25 units Lantus twice a day with sliding scale. She was advised to increase the insulin dose by 2 to 4 units every other day based on the blood sugars. She stated understanding. FINAL DIAGNOSES: 1. Diabetic ketoacidosis secondary to discontinuation of insulin. 2. Hypertension. 3. Obesity with a BMI of 32.5. 4. Multiple electrolyte abnormalities, including hypokalemia, hyponatremia, hypophosphatemia, and hypomagnesemia. 5. Anion gap metabolic acidosis secondary to diabetic ketoacidosis. 6. on admission secondary to acidosis. 7. Gastroesophageal reflux disease. 8. Dehydration on admission. PLAN: Plan was discussed with the patient in detail. She stated understanding. Job ID: [id number]
== END 2018-08-31 15:30 | disposition home or self-care (01) | DRG 638 ==
LOC: ERS 11:35 → ERHOLD 16:46 → IMCU/EMU 23:50 → T4-A 08-29 14:37
PROVIDERS: ADMIT Emergency Medicine; ATTEND Emergency Medicine
DX: E11.10 Type 2 diabetes mellitus with ketoacidosis without coma (principal); E87.2 Acidosis; E87.1 Hypo-osmolality and hyponatremia; M79.7 Fibromyalgia; I10 Essential (primary) hypertension; K21.9 Gastro-esophageal reflux disease without esophagitis; E78.5 Hyperlipidemia, unspecified; E66.9 Obesity, unspecified; Z68.32 Body mass index [BMI] 32.0-32.9, adult; E87.6 Hypokalemia; E83.39 Other disorders of phosphorus metabolism; E83.42 Hypomagnesemia; E86.0 Dehydration; Z79.4 Long term (current) use of insulin; Z85.3 Personal history of malignant neoplasm of breast; Z90.10 Acquired absence of unspecified breast and nipple; Z83.3 Family history of diabetes mellitus; Z80.1 Family history of malignant neoplasm of trachea, bronchus and lung
CPT/HCPCS: 36415; 36416; 74022; 80048; 80053; 81003; 81015; 82010; 82330; 82803; 83735; 83930; 84100; 85025; 90471; 90686; G0008; J1650; J1815; J2405; J7050; Q0162

== ENCOUNTER 2018-11-10 08:20 | Outpatient (CLI) | payer BC ==
--- NOTE | 2018-11-11 11:12 | MMO ---
Left Breast MAMMO Unilat Diag DDI LT+TENISHA. CLINICAL HISTORY: Patient is 42 years old and is seen for diagnostic exam. The patient has no family history of breast cancer. The patient has a history of right Mastectomy in 2018 - malignant. VIEWS: The views performed were: left craniocaudal with tomosynthesis; left mediolateral oblique with tomosynthesis; left mediolateral; and left exaggerated craniocaudal. FILMS COMPARED: The present examination has been compared to prior imaging studies performed at [facility] on 10/23/2016 and 12/16/2016. MAMMOGRAM FINDINGS: The breast is heterogeneously dense, which could obscure a lesion on mammography. There are benign appearing calcifications seen in the left breast. There are no suspicious masses, suspicious calcifications, or new areas of architectural distortion. IMPRESSION: THERE IS NO MAMMOGRAPHIC EVIDENCE OF MALIGNANCY. A ROUTINE FOLLOW-UP MAMMOGRAM IN 1 YEAR IS RECOMMENDED. THE RESULTS OF THIS EXAM WERE SENT TO THE PATIENT. ACR BI-RADS Category 2 - Benign finding MAMMOGRAPHY NOTE: 1. A negative mammogram report should not delay a biopsy if a dominant of clinically suspicious mass is present. 2. Approximately 10% to 15% of breast cancers are not detected by mammography. 3. Adenosis and dense breasts may obscure an underlying neoplasm.
== END 2018-11-10 08:21 | disposition home or self-care (01) ==
LOC: BICMAMMO 08:20
PROVIDERS: ATTEND Internal Medicine Hematology & Oncology
DX: Z08 Encounter for follow-up examination after completed treatment for malignant neoplasm (principal); Z85.3 Personal history of malignant neoplasm of breast; Z90.11 Acquired absence of right breast and nipple
CPT/HCPCS: G0279

== ENCOUNTER 2019-02-22 13:58 | Emergency (ER) | payer BC ==
[~2019-02-22 13:58] MED LIST changes: -Gadobenate Dimeglumine 529 MG/1 ML (20ML VIAL) ONE; +ISOVUE-370 76%-LOCM 1 ML ONE
[2019-02-22 14:44] LABS: #Basophils 0.1 thou/uL (0.0-0.2); #Eosinphils 0.2 thou/uL (0.0-0.7); #Lymphocytes 2.4 thou/uL (1.20-3.40); #Monocytes 0.8 thou/uL (0.11-0.59); #Neutrophils 14.6 thou/uL (1.40-6.50); %Basophils 0.4 % (0.0-1.0); %Eosinophils 1.3 % (0.0-10.0); %Lymphocytes 13.3 % (21.0-51.0); %Monocytes 4.6 % (0.0-10.0); %Neutrophils 80.5 % (42.0-75.0); Mean Corpuscular Hemoglobin 28.6 pg (27.0-31.0); Mean Corpuscular Volume 89.4 fL (78.0-98.0); Mean Platelet Volume 7.3 fL (7.4-10.4); Platelet Count 270 thou/uL (130-400); White Blood Cell (WBC) Count 18.2 thou/uL (4.8-10.8)
[2019-02-22 15:04] LABS: ALT (SGPT) 24 U/L (8-55); AST (SGOT) 13 U/L (5-34); Albumin 4.1 g/dL (3.5-5.0); Alkaline Phosphatase 91 U/L (40-150); Anion Gap 16 mmol/L (10-20); BUN (Urea Nitrogen) 13 mg/dL (7.0-18.7); Bilirubin, Total 0.3 mg/dL (0.2-1.2); Calc. Creatinine Clearance 0 mL/min (70-130); Carbon Dioxide 20 mmol/L (22-29); Chloride 105 mmol/L (98-107); Estimated GFR-MDRD Greater than 90; Globulin 3.4 g/dL (2.4-3.5); Glucose 194 mg/dL (70-105); Protein, Total 7.5 g/dL (6.0-8.3); Sodium 137 mmol/L (136-145)
[2019-02-22] MEDS ORDERED: Ondansetron PF 4 MG/2 ML Vial ONE ×2 (15:44→17:02)
--- NOTE | 2019-02-22 17:58 | CT ---
CT ABDOMEN AND PELVIS WITH IV CONTRAST: HISTORY: Nausea, vomiting, and abdominal pain. Elevated white count. COMPARISON: 04/20/2018 FINDINGS: The lung bases are clear. There is fatty infiltration of the liver without focal mass or abnormal bi liary ductal dilatation. No calcified gallstones are seen. There are calcified granulomas in the sp hermilo. The pancreas, adrenal glands, and kidneys are normal. No free air, free fluid, or lymphadenopathy is seen in the abdomen or pelvis. Uterus and ovaries are present. The small bowel loops are not abnor kendell dilated. A normal appearing appendix is present. There are vascular calcifications without evidence of aneurysmal dilatation of the abdominal aorta. There are degenerative changes in the spine. IMPRESSION: 1. No CT evidence of acute process in the abdomen or pelvis. 2. Fatty liver. 3. Calcified splenic granulomas. POS: OFF
[2019-02-22 19:06] LABS: Bilirubin Negative (Negative); Blood, Urine Negative (Negative); Clarity Clear (Clear); Glucose, Urine (Dipstick) Normal (Negative); Leukocyte Negative Leu/uL (Negative); Nitrite Negative (Negative); Protein, Urine (Dipstick) Negative (Neg-Trace); Urobilinogen Normal mg/dL (Less than 2)
== END 2019-02-22 19:20 | disposition home or self-care (01) ==
LOC: ERS 13:58
DX: E86.0 Dehydration (principal); R11.2 Nausea with vomiting, unspecified; E11.9 Type 2 diabetes mellitus without complications; I10 Essential (primary) hypertension; F41.9 Anxiety disorder, unspecified; Z79.84 Long term (current) use of oral hypoglycemic drugs; Z79.899 Other long term (current) drug therapy
CPT/HCPCS: 36415; 36416; 74177; 80053; 81003; 82010; 85025; 96361; 96374; 96376; J2405; Q9966

== ENCOUNTER 2019-04-27 13:58 | Outpatient (CLI) | payer BC ==
--- NOTE | 2019-04-27 15:26 | CT ---
CT of the neck: 04/27/2019 COMPARISON: None HISTORY: Lump in the right side of the neck TECHNIQUE: Axial CT imaging obtained at 2.5 mm intervals through the neck with IV contrast. Coronal a nd sagittal reformatted imaging obtained. FINDINGS: The imaged brain parenchyma appears unremarkable. The imaged paranasal sinuses/mastoid air cells are well aerated. Visualized lung apices are unremarkable. There is a left-sided Port-A-Cath present. The retroantral fat and the parapharyngeal fat appears clear bilaterally. The parotid glands and subm andibular glands are unremarkable. The tonsillar pillars, the epiglottis and preepiglottic fat, the hyoid bone, the thyroid cartilage, a nd the cricoid cartilage appears grossly unremarkable. The thyroid gland is markedly enlarged and heterogeneous, likely on the basis of numerous hypodense n odules. This includes a dominant nodule with internal calcification causing expansion/enlargement of the left lobe of the thyroid gland measuring at least 4.4 cm in transverse dimension, similar when compared to a CT angiogram of the chest performed 04/17/2018.This is also similar when compared to a CT examination of the chest performed at 12/31/2016. The vascular structures of the neck appear patent. There is an ill-defined soft tissue mass lesion in the supraclavicular region medially on the right w hich appears to invade the scalene musculature on the right at the axial level of the thyroid gland. Ill-defined nature of this mass makes measurement somewhat difficult. The lesion measures at l east 2.5 x 3.3 x 2.7 cm. This mass is just superior to the subclavian artery and vein, just lateral to the common carotid artery and internal jugular vein, and just posterior to the external jugular ve in. No additional mass lesions are noted within the neck. Review of the osseous structures demonstrates no worrisome lytic or blastic bone lesion. IMPRESSION: Infiltrative aggressive appearing soft tissue mass in the medial aspect of the right supr aclavicular fossa inseparable from the scalene musculature on the right as above. This is concerning for malignancy/metastatic disease. ENRICO T Dr. Francisco made aware at 3:00 PM 04/27/2019. Transcribed Date/Time: 04/27/2019 3:34 PM
--- NOTE | 2019-04-27 15:35 | CT ---
CT CHEST: 04/27/2019 HISTORY: Breast cancer. RIght neck mass. COMPARISON: 10/20/2017 TECHNIQUE: Axial CT imaging at 5 mm intervals from the thoracic inlet through the upper abdomen with IV contrast . Coronal and sagittal reformatted imaging obtained. FINDINGS: The thyroid gland is heterogeneous and enlarged, containing a dominant hypodense nodule within the in ferior aspect of the left lobe, measuring up to approximately 4.4 cm, unchanged when compared to the 10/20/2017 exam. There is a left-sided Port-A-Cath present. There is evidence of a prior right mastectomy with axillary node dissection on the right. No lymphadenopathy is noted within the left axillary or right axillary region and no lymphadenopathy is apparent within the hilar or mediastinal regions. The hepatic parenchyma is diffusely hypodense, suggesting steatosis. The imaged upper abdomen appears grossly unremarkable otherwise. No pleural, pericardial or mediastinal fluid is seen. Review of the osseous structures of the chest revealed no worrisome lytic or blastic lesions. There is a granuloma within the right lower lobe on axial image 42. No dominant pulmonary parenchymal mass lesion or nodule is evident on either side. A partially visualized mass is noted in the supraclavicular region medially on the right, better asse ssed on CT examination of the neck, also performed 04/27/2019. IMPRESSION: Partially imaged lesion within the supraclavicular region on the right, suspicious for metastatic dis ease. Additional findings as detailed above. Results called to Dr. Francisco at 3:30 p.m. on 04/27/2019. CODE CR Transcribed Date/Time: 04/27/2019 3:44 PM
== END 2019-04-27 13:59 | disposition home or self-care (01) ==
LOC: CT 13:58
PROVIDERS: ATTEND Internal Medicine Hematology & Oncology
DX: C50.919 Malignant neoplasm of unspecified site of unspecified female breast (principal); R22.1 Localized swelling, mass and lump, neck
CPT/HCPCS: 70491; 71260

== ENCOUNTER 2019-05-13 07:27 | Outpatient (CLI) | payer BC ==
--- NOTE | 2019-05-13 09:59 | PET ---
EXAM: PET CT skull to mid thigh COMPARISON: CT neck 04/27/2019 HISTORY: Right breast cancer with mass at the cervicothoracic junction TECHNIQUE: A PET/CT was performed from the skull apex to the mid thigh after administration of 11.9 m illicuries of F-18 FDG. Evaluation was performed on a [employer] workstation. FINDINGS: INTRACRANIAL: No areas of increased or decreased uptake of the radiopharmaceutical are seen. NECK: The right infraclavicular lymph node is hypermetabolic with a max SUV value of 14.4. Hypermetab olic activity is seen adjacent to the irina in the right retropectoral region with a 9 mm nodule. This has a max SUV value of 10.4. The thyroid nodule does not demonstrate hypermetabolic activity. CHEST: No areas of hypermetabolic activity ABDOMEN/PELVIS: No areas of hypermetabolic activity SKELETON: No areas of hypermetabolic activity CT images used for attenuation correction show a left-sided Mediport with its tip in the superior kraig a cava. Patient is status post right mastectomy. Cysts are seen in both ovaries.. IMPRESSION: Right hypermetabolic retropectoral and infraclavicular metastatic lymph nodes.
== END 2019-05-13 07:28 | disposition home or self-care (01) ==
LOC: PET 07:27
PROVIDERS: ATTEND Internal Medicine Hematology & Oncology
DX: C50.411 Malignant neoplasm of upper-outer quadrant of right female breast (principal)
CPT/HCPCS: 78815; A9552

== ENCOUNTER 2019-08-25 13:14 | Outpatient (CLI) | payer BC ==
--- NOTE | 2019-08-25 15:10 | MRI ---
MRI BRAIN WITH AND WITHOUT CONTRAST: DATE: 08/25/2019 HISTORY: 43-year-old female with recurrent breast cancer and new onset headaches with nausea. Evaluation for b rain metastasis. TECHNIQUE: Multiple sequences obtained in axial, sagittal, and coronal planes; pre and post IV injection of gado linium-based contrast agent: 20 mL MultiHance. FINDINGS: The ventricles are normal in size and configuration. There is no major intraaxial signal abnormality , restricted diffusion, abnormal intraaxial enhancement, mass, midline shift or any other mass effect , recent intraaxial hemorrhage, or extraaxial fluid collection. IMPRESSION: Normal. jn[] POS: TPC
== END 2019-08-25 13:15 | disposition home or self-care (01) ==
LOC: SCSMRI 13:14
PROVIDERS: ATTEND Radiology Radiation Oncology
DX: C50.411 Malignant neoplasm of upper-outer quadrant of right female breast (principal); G44.52 New daily persistent headache (NDPH); C79.51 Secondary malignant neoplasm of bone
CPT/HCPCS: 70553

== ENCOUNTER 2019-09-02 11:56 | Outpatient (CLI) | payer BC ==
--- NOTE | 2019-09-02 15:12 | PET ---
Radionucleotide PET scan with CT attenuation correction HISTORY: Malignant neoplasm upper outer right breast. Metastatic lymph nodes. Restaging. COMPARISON: 05/13/2019. FINDINGS: Physiologic uptake of radiotracer throughout the enteric system and along each urinary trac t. At the right infraclavicular level in region of adenopathy on the prior study, no residual abnormal u ptake is apparent. At the right retropectoral/axillary level, immediately adjacent to the hemostasis clips, maximum SUV is now 2.2 (previously 7.4). A new focus of increased radiotracer uptake now involves the far anterior aspect of the left fourth r ib maximum SUV 4.8. There is subtle irregularity of the rib morphologically on the CT images, although the appearance is not typical for a fracture. No definite osseous destruction evident. A new focus of borderline increased uptake is also present at the right side of the third sacral leve l. Maximum SUV 2.5. The current exam also shows patchy areas of airspace consolidation within the right upper lobe. Incre ased radiotracer activity with maximal SUV 3.4. Small amount right pleural fluid is also present. Lobular nonhypermetabolic prominence of the left thyroid lobe is again demonstrated. Cyst of the righ t thyroid lobe is stable. Right breast is surgically absent. Left subclavian Port-A-Cath in place. IMPRESSION: Mixed findings. There has been resolution of the right subclavicular hypermetabolic adeno paolo and near complete resolution of the lymph nodes/postoperative uptake at the right axilla/retropectoral level. New subtle abnormalities now involve the left fourth rib and right side of the sacrum. While uptake o f a rib is often associated with a nonpathologic fracture, the singularity of the rib abnormality and the new borderline hypermetabolic lesion of the right sacrum make them suspicious for new osseous metastatic involvement. New patchy areas of consolidation and mildly hypermetabolic activity within the right upper lung lobe and small amount right pleural fluid are likely related to radiation treatment. A focal parenchymal mass is not evident. Clinical correlation regarding other signs and symptoms of right upp er lobe pneumonitis is required.
== END 2019-09-02 11:57 | disposition home or self-care (01) ==
LOC: PET 11:56
PROVIDERS: ATTEND Internal Medicine Hematology & Oncology
DX: C50.411 Malignant neoplasm of upper-outer quadrant of right female breast (principal); C77.0 Secondary and unspecified malignant neoplasm of lymph nodes of head, face and neck; R94.8 Abnormal results of function studies of other organs and systems
CPT/HCPCS: 78815; A9552

== ENCOUNTER 2019-11-09 11:36 | Outpatient (CLI) | payer BC ==
--- NOTE | 2019-11-09 16:23 | PET ---
Radionucleotide PET scan with CT attenuation correction HISTORY: Malignant neoplasm of upper outer quadrant right breast with metastatic disease. Restaging. COMPARISON: 09/02/2019. FINDINGS: Physiologic uptake of radiotracer is present throughout the enteric system and along each u rinary tract. Infiltrate and scarring at the right lung apex with increased radiotracer uptake is again demonstrated. Morphologically, it is much less pronounced than on the prior study. Maximum SUV is unchanged at 3.9. Postoperative changes of the right breast and axilla again demonstrated. Increased uptake at the post operative bed adjacent to the hemostasis clips now shows a maximum SUV 3.4 (previously 2.6). There is no associated mass. Uptake is favored to be reactive rather than neoplastic. Linear uptake associated with the anterior aspect of the left fourth rib shows max SUV 6.0 (previousl y 6.3) the area of increased uptake at the right side of the sacrum is again seen max SUV 4.6 (previously 3.0). No new hypermetabolic skeletal foci are apparent. The nondiagnostic CT attenuation correction images again show a non-hypermetabolic lobular and enlarg ed thyroid gland likely representing a goiter. Diffuse fatty infiltration of the liver is evident. IMPRESSION : Overall stable exam. Skeletal uptake of the left fourth rib and right side of the sacrum is not signi ficantly changed. The infiltrate and scarring at the right lung apex has improved morphologically with radiotracer uptake intensity unchanged.
== END 2019-11-09 11:37 | disposition home or self-care (01) ==
LOC: PET 11:36
PROVIDERS: ATTEND Internal Medicine Hematology & Oncology
DX: C50.411 Malignant neoplasm of upper-outer quadrant of right female breast (principal); C77.0 Secondary and unspecified malignant neoplasm of lymph nodes of head, face and neck; R93.7 Abnormal findings on diagnostic imaging of other parts of musculoskeletal system
CPT/HCPCS: 78815; A9552

== ENCOUNTER 2019-12-28 14:43 | Outpatient (CLI) | payer BC ==
--- NOTE | 2019-12-28 16:04 | RAD ---
Fluoroscopic Tube check implantable vascular access port injection: 12/28/2019 HISTORY: 44-year-old female with right breast cancer with malfunctioning MediPort. TECHNIQUE AND FINDINGS: Attempted aspiration of the Doran needle was unsuccessful, with no blood return. Under brief, intermi ttent fluoroscopy, contrast was injected into the Doran needle that was connected to the left subclavian implantable vascular access port (distal tip of catheter at SVC). Initially with the patie nt supine, there was high resistance to injection, such that no could be injected at all. Patient stated that chemotherapy injection was often problematic when she was supine. The patient then sat up , and this allowed injection of iodinated contrast, but there was still high resistance. With the patient supine, continued injection demonstrated contrast filling the implantable vascular access cat heter tubing. There is a loop in the lateral portion of the catheter, but no kink, leakage, or accumulation of contrast. Difficult to determine whether or not there is a subtle fibrin sheath aroun d the distal portion of the catheter because of movement of the catheter during cardiac pulsations. It was also difficult to visualize contrast exiting the tip of the catheter into the superior vena ca va, but there must have been contrast flowing out of the tip, because there was no extravasation of contrast anywhere. It is likely that there is probably a very thin fibrin sheath and one way valve ef fect at the tip. The Doran needle was flushed with a total of 10 mL of heparinized normal saline, upon which the contrast cleared from the catheter tubing. Patient tolerated procedure well. No compli cations. IMPRESSION: High resistance of left subclavian implantable access port, with no blood return, and injection requi ring high force. No evidence of leakage. See above comments.
== END 2019-12-28 14:44 | disposition home or self-care (01) ==
LOC: RAD 14:43
PROVIDERS: ATTEND Internal Medicine Hematology & Oncology
DX: C50.411 Malignant neoplasm of upper-outer quadrant of right female breast (principal); C79.51 Secondary malignant neoplasm of bone
CPT/HCPCS: 36415; 36598; 80053; 82248; 83615; 84100; 84550; J1642

== ENCOUNTER 2020-01-13 10:25 | Outpatient (CLI) | payer BC ==
--- NOTE | 2020-01-13 16:45 | PET ---
Radionucleotide PET scan with CT attenuation correction HISTORY: Breast cancer. Bone metastases. Restaging. COMPARISON: 11/09/2019. FINDINGS: Physiologic uptake of radiotracer throughout the enteric system and along each urinary trac t. Parenchymal scarring at the right apex has become less conspicuous morphologically. Max SUV now 2.2 (previously 3.6). There is reactive appearing muscular uptake around the right upper chest wall. Uptake associated with the abnormality at the anterior aspect of the left rib now is not hypermetabol ic max SUV 1.3. Right sacral lesion is now also non-hypermetabolic max SUV 2.0. Mild diffuse reactive uptake throughout the bone marrow. No new bone lesions. Nondiagnostic CT attenuation correction images again show lobular mass is associated with a multinodu lar goiter. Diffuse fatty infiltration of the liver. IMPRESSION : Continued improvement, with resolution of the hypermetabolic activity previously seen with the left f ourth rib and the right side of the sacrum. No new abnormalities.
== END 2020-01-13 10:26 | disposition home or self-care (01) ==
LOC: PET 10:25
PROVIDERS: ATTEND Internal Medicine Hematology & Oncology
DX: C50.919 Malignant neoplasm of unspecified site of unspecified female breast (principal); C79.51 Secondary malignant neoplasm of bone
CPT/HCPCS: 78815; A9552

== ENCOUNTER 2020-05-24 09:27 | Outpatient (CLI) | payer BC ==
[~2020-05-24 09:27] MED LIST changes: -ISOVUE-370 76%-LOCM 1 ML ONE; +Iopamidol 300 61% 50 ML VIAL FS ONE
[2020-05-24] MEDS ORDERED: Activase 2 MG VIAL CATH SCH (11:30)
[2020-05-24] MEDS ORDERED: Sodium Chloride 0.9% 10 ML ONE (12:05)
--- NOTE | 2020-05-24 12:38 | RAD ---
Left upper extremity Port-A-Cath check: 05/24/2020 HISTORY: Malfunctioning Port-A-Cath FINDINGS: Informed consent was obtained prior to this procedure. Medical Office Manager imaging of the chest [place] elevation of the right hemidiaphragm as well as a stable left upper extremity Port-A-Cath. Postsurgical clips overlie the right axillary region. With real-time fluoroscopy, the patient's Port-A-Cath was accessed under sterile conditions with a Hu shlomo needle. Of note, aspiration does not yield blood return. The catheter could be flushed forward with marked resistance. Contrast media was injected which fills the reservoir and the catheter tubing . The contrast media extends in a retrograde fashion at the tip of the catheter consistent with a fibrin sheath. IMPRESSION: Patent left upper from a Port-A-Cath. There is a prominent fibrin sheath at the tip of th e catheter. Dr. Francisco made aware at the time of interpretation 05/24/2020.
== END 2020-05-24 09:28 | disposition home or self-care (01) ==
LOC: RAD 09:27
PROVIDERS: ATTEND Internal Medicine Hematology & Oncology
DX: Z45.2 Encounter for adjustment and management of vascular access device (principal); T82.598A Other mechanical complication of other cardiac and vascular devices and implants, initial encounter
CPT/HCPCS: 36598; J1642; J2997; Q9967

== ENCOUNTER 2020-06-20 10:00 | Outpatient (CLI) | payer BC ==
[2020-06-20] MEDS ORDERED: Iopamidol 370 76% 100 ML VIAL ONE (10:48)
--- NOTE | 2020-06-20 13:06 | CT ---
CT OF THE CHEST AND ABDOMEN AND PELVIS WITH IV CONTRAST: Date: 06/20/2020 INDICATION: 44-year-old female with history of metastatic breast cancer. COMPARISON: Prior PET CT dated 01/13/2020 and 09/02/2019. FINDINGS: There are new noncalcified reticulonodular opacities within the lingula, left upper lobe, and anterol ateral left lower lobe which are nonspecific. Areas of radiation fibrotic change are seen involving t he right lung apex. No suspicious pulmonary nodularity is seen within the right lung. There is a left subclavian chest wall port. Left-sided substernal goiter is unchanged. No lymphadenopathy is evident . Inflammatory stranding consistent with post therapy and postsurgical change of the right axilla and right upper chest wall stable. There is diffuse fatty infiltration of the liver. The pancreas, adrenal glands, and spleen reveal no acute abnormality. The kidneys appear within normal limits. No free fluid or enlarged lymph nodes are evident. There is a moderate amount of retained stool within the colon. The bladder, rectum, and perirectal so ft tissues are unremarkable appearing. There is worsening scattered osteoblastic metastatic disease involving the visualized appendicular an d axial skeleton. IMPRESSION: 1. Worsening osteoblastic metastatic disease involving the visualized appendicular and axial skeleto n. This has significant worsened from the prior PET CT evaluation. There are now numerous lesions inv olving the axial skeleton, proximal femurs, pelvis, ribs, proximal left humerus. 2. New reticulonodular opacities of the left upper lobe, lingula, and left lower lobe, suspicious fo r bronchiolitis; however, metastatic disease could have a similar appearance. Recommend correlation w ith clinical examination and follow-up CT images in 6-8 weeks. 3. Post therapy changes involving the right upper lobe and right upper chest wall. CODE T. POS: ELIZABETH
--- NOTE | 2020-06-20 14:35 | NM ---
NM Bone Scan STANDARD History: Breast cancer Comparison: Nuclear medicine bone scan 2017. Chest abdomen and pelvis CT exam June 20, 2020 Findings: Delayed whole body bone scan was performed after the intravenous administration 32.8 mCi te chnetium 99m MDP. There is abnormal increased radiotracer uptake throughout the ribs, thoracolumbar spine, pelvis as we ll as both proximal femurs. Abnormal uptake within the obturator rings. The kidneys and urinary bladder are both visualized. Impression: Diffuse osseous metastatic disease.
== END 2020-06-20 10:01 | disposition home or self-care (01) ==
LOC: CT 10:00
PROVIDERS: ATTEND Internal Medicine Hematology & Oncology
DX: C79.51 Secondary malignant neoplasm of bone (principal); C50.411 Malignant neoplasm of upper-outer quadrant of right female breast; R91.8 Other nonspecific abnormal finding of lung field
CPT/HCPCS: 71260; 74177; 78306; A9503; Q9967

== ENCOUNTER 2020-10-03 08:35 | Outpatient (CLI) | payer BC, MEDICAID ==
--- NOTE | 2020-10-03 09:38 | CT ---
Exam: Chest CT with contrast Abdomen CT with contrast Pelvic CT with contrast HISTORY: Metastatic triple negative breast cancer. Correlation: PET imaging 01/13/2020 and bone scan 06/20/2020. COMPARISON: 06/20/2020. FINDINGS: Chest CT: Lower neck: Asymmetrically enlarged left thyroid lobe is once again demonstrated. There are coarse ca lcifications, with slight heterogeneous appearance. Left thyroid lobe measures 4.8 x 4.4 cm. Mediastinum: No mass, lymphadenopathy or hematoma. Aorta: Normal caliber aorta. No periaortic fat stranding. Heart: Normal heart size. No significant pericardial fluid. Trachea and central bronchi: Patent. Pleural spaces: No effusion. Right lung: There are increased linear densities along the anterior aspect of the right upper lobe an d right lung apex, similar to the previous examination. Post treatment change is favored. No suspicious masses, nodules or consolidation. Left lung:There are linear densities and parenchymal changes involving the lingula. The overall degre e of opacification has progressed. Post treatment change with resulting fibrosis is favored. Superimposed infiltrate cannot be excluded. There are no suspicious masses, nodules or consolidation. Pneumothorax: None. Abdomen CT: Gallbladder: Unremarkable. Portal vein: Patent. Liver: Appropriate enhancement. Spleen: Appropriate enhancement. Pancreas: Appropriate enhancement. Adrenal glands: Appropriate enhancement. Lymphadenopathy: No gastrohepatic, retrocrural or periportal lymphadenopathy. Kidneys: Symmetric enhancement. No obstructive uropathy. Mesentery: No mass, lymphadenopathy, free air or free fluid. Alimentary canal: Unremarkable gastric mucosa and duodenum. Multiple normal caliber small bowel loops . Normal ileocecal junction. Scattered fecal material in a nondistended, nondilated colon. Pelvis CT: No mass, lymphadenopathy, free air or free fluid. Unremarkable urinary bladder. Presacral fat is preserved. Unremarkable reproductive organs. Osseous structures:Multifocal sclerotic lesions, compatible with known multifocal osseous metastases. No evidence of a pathologic fracture. The overall size of the metastatic deposits has increased, as has the overall number of metastatic lesions. IMPRESSION: 1. Multifocal osseous metastases. No evidence of pathologic fracture. Progression of osseous metastas es. 2. Stable posttreatment changes in the right lung. 3. Increased linear densities in the lingula likely representing progression of treatment change. The possibility of a superimposed infiltrate cannot be excluded. Transcribed Date/Time: 10/03/2020 10:19 AM
[2020-10-03] MEDS ORDERED: Iopamidol 370 76% 100 ML VIAL ONE (10:24)
--- NOTE | 2020-10-03 13:04 | NM ---
Whole body bone scan: 10/03/2020 COMPARISON: 06/20/2020 HISTORY: Reevaluate osseous metastatic disease, history of breast cancer TECHNIQUE: Anterior and posterior whole-body imaging obtained following the intravenous administratio n of 32.6 mCi technetium 99 M labeled MDP FINDINGS: Physiologic radiotracer activity is seen in the region of the kidneys and the urinary bladd er. There are numerous subtle foci of increased radiotracer activity within the mid shaft and proximal sh aft of the bilateral femur, right more numerous than left, many of these foci new when compared to the prior study. Foci of radiotracer activity on the basis of metastatic disease overlies the femoral neck bilaterally, slightly more conspicuous on the left when compared to the prior imaging. There are multiple foci of increased radiotracer activity within the sacrum consistent with metastatic dise ase, stable. There are numerous foci of increased radiotracer activity within the thoracic spine and lumbar spine consistent with multifocal osseous metastatic disease of the spine, most prominent w ithin the mid and upper lumbar spine. There are numerous bilateral rib metastatic foci, stable. There is radiotracer activity overlying the humeral heads bilaterally, left greater than right, suspi cious for metastatic disease. Probable new foci of radiotracer activity overlie the proximal and mid shaft left humerus. No calvarial lesion. IMPRESSION: Scintigraphic evidence of osseous metastatic disease as detailed above. Probable new lesi ons are noted within the femoral shaft bilaterally and the left humeral shaft.
== END 2020-10-03 08:36 | disposition home or self-care (01) ==
LOC: CT 08:35
PROVIDERS: ATTEND Internal Medicine Hematology & Oncology
DX: C50.411 Malignant neoplasm of upper-outer quadrant of right female breast (principal); C79.51 Secondary malignant neoplasm of bone; R91.8 Other nonspecific abnormal finding of lung field
CPT/HCPCS: 71260; 74177; 78306; A9503; Q9967

== ENCOUNTER 2020-12-15 08:34 | Outpatient (CLI) | payer OTHER ==
[2020-12-15] MEDS ORDERED: Iopamidol 370 76% 100 ML VIAL ONE (11:47)
== END 2020-12-15 08:35 | disposition home or self-care (01) ==
LOC: CT 08:34
PROVIDERS: ATTEND Internal Medicine Hematology & Oncology
DX: C50.411 Malignant neoplasm of upper-outer quadrant of right female breast (principal); C79.51 Secondary malignant neoplasm of bone; K57.92 Diverticulitis of intestine, part unspecified, without perforation or abscess without bleeding; R10.31 Right lower quadrant pain
CPT/HCPCS: 74177; Q9967

== ENCOUNTER 2021-05-16 10:48 | Outpatient (CLI) | payer OTHER ==
[2021-05-16] MEDS ORDERED: Magnevist 469MG/ML 20 ML VIAL ONE (11:22)
== END 2021-05-16 10:49 | disposition home or self-care (01) ==
LOC: MRI 10:48
PROVIDERS: ATTEND Internal Medicine Hematology & Oncology
DX: C50.411 Malignant neoplasm of upper-outer quadrant of right female breast (principal); R51.9 Headache, unspecified; H53.8 Other visual disturbances; M54.2 Cervicalgia; R20.0 Anesthesia of skin
CPT/HCPCS: 70553; A9579

== ENCOUNTER 2021-06-26 08:57 | Outpatient (CLI) | payer MEDICAID, OTHER | END 2021-06-26 08:58 | disposition home or self-care (01) | LOC: CT 08:57 | PROVIDERS: ATTEND Internal Medicine Hematology & Oncology | DX: C50.411 Malignant neoplasm of upper-outer quadrant of right female breast (principal); C79.51 Secondary malignant neoplasm of bone; J98.4 Other disorders of lung; K76.0 Fatty (change of) liver, not elsewhere classified | CPT/HCPCS: 36415; 71260; 74177; 78306; 80053; A9503 ==

== ENCOUNTER 2021-09-24 10:02 | Outpatient (CLI) | payer OTHER | END 2021-09-24 10:03 | disposition home or self-care (01) | LOC: NM 10:02 | PROVIDERS: ATTEND Internal Medicine Hematology & Oncology | DX: C50.411 Malignant neoplasm of upper-outer quadrant of right female breast (principal); C79.51 Secondary malignant neoplasm of bone | CPT/HCPCS: 78306; A9503; J1642 ==

== ENCOUNTER 2021-12-10 08:25 | Outpatient (CLI) | payer OTHER ==
[2021-12-10] MEDS ORDERED: Iopamidol 370 76% 100 ML VIAL ONE (09:14)
== END 2021-12-10 08:26 | disposition home or self-care (01) ==
LOC: CT 08:25
PROVIDERS: ATTEND Internal Medicine Hematology & Oncology
DX: C50.411 Malignant neoplasm of upper-outer quadrant of right female breast (principal); C79.51 Secondary malignant neoplasm of bone; R91.8 Other nonspecific abnormal finding of lung field; Z98.890 Other specified postprocedural states; E04.2 Nontoxic multinodular goiter
CPT/HCPCS: 71260; 74177; 78306; A9503; Q9967

== ENCOUNTER 2021-12-20 10:15 | Outpatient (CLI) | payer OTHER | END 2021-12-20 10:16 | disposition home or self-care (01) | LOC: PET 10:15 | PROVIDERS: ATTEND Internal Medicine Hematology & Oncology | DX: C50.411 Malignant neoplasm of upper-outer quadrant of right female breast (principal); C79.51 Secondary malignant neoplasm of bone; C78.7 Secondary malignant neoplasm of liver and intrahepatic bile duct | CPT/HCPCS: 78815; A9552 ==

== ENCOUNTER 2022-01-12 15:37 | Inpatient (IN) | payer OTHER ==
[2022-01-12 16:53] VITALS: BMI 35.9
[2022-01-12] MEDS ORDERED: Artificial Tear Sol 15 ML BOT EA EYE PRN (17:00)
[2022-01-12] MEDS ORDERED: hydrALAZINE 20 MG/ML VIAL SLOW IVP PRN (17:00)
[2022-01-12] MEDS ORDERED: Labetalol HCl 100 MG/20 ML VIAL SLOW IVP PRN (17:00)
[2022-01-12] MEDS ORDERED: Acetaminophen 500 MG TAB PO PRN (17:00)
[2022-01-12] MEDS ORDERED: Moisturizing Cream (Eucerin) 113 GM JAR TOP PRN (17:00)
[2022-01-12] MEDS ORDERED: Ondansetron ODT 4 MG TAB PO PRN (17:00)
[2022-01-12] MEDS ORDERED: HYDROcodone/Acetaminophen 5/325 mg Tablet PO PRN (17:00)
[2022-01-12] MEDS ORDERED: Enoxaparin Sodium 40 MG/0.4 ML SYRINGE SC SCH (17:00)
[2022-01-12 17:38] LABS: #Lymphocytes 1.3 thou/uL (1.20-3.40); #Neutrophils 7.6 thou/uL (1.40-6.50); %Basophils 0.3 % (0.0-1.0); %Eosinophils 0.4 % (0.0-10.0); %Lymphocytes 13.3 % (21.0-51.0); %Monocytes 10.3 % (0.0-10.0); %Neutrophils 75.7 % (42.0-75.0); Hemoglobin 12.6 g/dL (12.0-16.0); Mean Corpuscular HGB CONC 32.4 g/dL (32.0-36.0); Mean Corpuscular Hemoglobin 30.7 pg (27.0-31.0); Mean Corpuscular Volume 94.5 fL (78.0-98.0); Mean Platelet Volume 7.3 fL (7.4-10.4); Platelet Count 239 thou/uL (130-400); RBC Distribution Width 14.9 % (11.5-14.5); Red Blood Cell (RBC) Count 4.13 mill/uL (4.20-5.40); White Blood Cell (WBC) Count 10.1 thou/uL (4.8-10.8)
[2022-01-12 18:01] LABS: ALT (SGPT) 32 U/L (8-55); AST (SGOT) 18 U/L (5-34); Albumin 3.7 g/dL (3.5-5.0); Alkaline Phosphatase 55 U/L (40-110); Anion Gap 16 mmol/L (10-20); BUN (Urea Nitrogen) 8 mg/dL (7.0-18.7); Bilirubin, Total 0.6 mg/dL (0.2-1.2); Calc. Creatinine Clearance 156 mL/min (70-130); Calcium 8.5 mg/dL (7.8-10.44); Carbon Dioxide 23 mmol/L (22-29); Chloride 99 mmol/L (98-107); Glucose 334 mg/dL (70-105); Potassium 5.4 mmol/L (3.5-5.1); Protein, Total 6.7 g/dL (6.0-8.3); Sodium 133 mmol/L (136-145)
[2022-01-12] MEDS ORDERED: Dextrose 50% Abboject 50 ML SYRINGE SLOW IVP PRN (18:07)
[2022-01-12] MEDS ORDERED: Dextrose 5% in Water 1,000 ML IV PRN (18:07)
[2022-01-12] MEDS ORDERED: diphenhydrAMINE 50 MG CAP PO PRN (18:22)
[2022-01-12 18:30] LABS: Hemoglobin 12.4 g/dL (12.0-16.0); Platelet Count 247 thou/uL (130-400)
[2022-01-12] MEDS ORDERED: Lactated Ringer's 1,000 ML IV SCH (18:30)
[2022-01-12 18:42] LABS: Bacteria/HPF None Seen HPF (None Seen); Bilirubin Negative (Negative); Blood, Urine Trace (Negative); Clarity Clear (Clear); Glucose, Urine (Dipstick) Greater than 1000 mg/dL (Negative); Ketone, Urine 100 mg/dL (Negative); Leukocyte Negative Leu/uL (Negative); Nitrite Negative (Negative); Pregnancy Test - Urine (BHCG) Negative (Negative); Pregu Control Background? CLEAR/WHITE (CLR/WHITE); Pregu Control Bar Appear? YES (CONTROL BAR); Protein, Urine (Dipstick) Negative (Neg-Trace); RBC/HPF 0-3 HPF (0-3); Specific Gravity 1.029 (1.002-1.036); Specific Gravity, Urine 1.029 (1.002-1.036); Squamous Epithelial 0-3 HPF (0-3); Urobilinogen Normal mg/dL (Less than 2); WBC/HPF 0-3 HPF (0-3)
[2022-01-12 18:43] LABS: Urine Culture Reflex No No
[2022-01-12 18:51] LABS: Anion Gap 16 mmol/L (10-20); BUN (Urea Nitrogen) 8 mg/dL (7.0-18.7); Calc. Creatinine Clearance 163 mL/min (70-130); Calcium 8.4 mg/dL (7.8-10.44); Carbon Dioxide 22 mmol/L (22-29); Chloride 100 mmol/L (98-107); Glucose 316 mg/dL (70-105); Magnesium 1.1 mg/dL (1.6-2.6); Phosphorus 3.4 mg/dL (2.3-4.7); Potassium 4.7 mmol/L (3.5-5.1); Sodium 133 mmol/L (136-145); Uric Acid 3.1 mg/dL (2.6-6.0)
[2022-01-12] MEDS ORDERED: Heparin 25,000 units/D5W 500 ML IVPB SCH (19:45)
[2022-01-12] MEDS ORDERED: Heparin 10,000 UNITS/ 10 ML VIAL SLOW IVP SCH (19:45)
[2022-01-12 20:34] LABS: Hemoglobin 11.6 g/dL (12.0-16.0); Platelet Count 232 thou/uL (130-400)
[2022-01-12] MEDS ORDERED: Insulin Glargine 30 UNITS/0.3 ML VIAL SC SCH (21:00)
[2022-01-12] MEDS: HYDROcodone/Acetaminophen 5/325 mg Tablet PO PRN (22:00)
[2022-01-12] MEDS: Famotidine 20 MG TAB PO SCH (22:01)
[2022-01-12] MEDS: HumaLOG 300 UNITS/3 ML VIAL SC PRN (22:08)
[2022-01-13] MEDS: HYDROcodone/Acetaminophen 5/325 mg Tablet PO PRN ×3 (04:18→20:29)
[2022-01-13 05:34] LABS: ALT (SGPT) 21 U/L (8-55); AST (SGOT) 10 U/L (5-34); Albumin 2.9 g/dL (3.5-5.0); Alkaline Phosphatase 40 U/L (40-110); Anion Gap 14 mmol/L (10-20); BUN (Urea Nitrogen) 8 mg/dL (7.0-18.7); Bilirubin, Total 0.5 mg/dL (0.2-1.2); Calc. Creatinine Clearance 176 mL/min (70-130); Calcium 7.6 mg/dL (7.8-10.44); Carbon Dioxide 22 mmol/L (22-29); Chloride 98 mmol/L (98-107); Globulin 2.3 g/dL (2.4-3.5); Glucose 445 mg/dL (70-105); Potassium 3.8 mmol/L (3.5-5.1); Protein, Total 5.2 g/dL (6.0-8.3); Sodium 130 mmol/L (136-145)
[2022-01-13 05:41] LABS: #Eosinphils 0.1 thou/uL (0.0-0.7); #Lymphocytes 1.5 thou/uL (1.20-3.40); #Monocytes 0.8 thou/uL (0.11-0.59); #Neutrophils 3.2 thou/uL (1.40-6.50); %Basophils 0.6 % (0.0-1.0); %Eosinophils 1.6 % (0.0-10.0); %Lymphocytes 26.7 % (21.0-51.0); %Monocytes 13.5 % (0.0-10.0); %Neutrophils 57.6 % (42.0-75.0); Hemoglobin 10.3 g/dL (12.0-16.0); Mean Corpuscular HGB CONC 32.1 g/dL (32.0-36.0); Mean Corpuscular Hemoglobin 31.4 pg (27.0-31.0); Mean Platelet Volume 7.5 fL (7.4-10.4); Platelet Count 185 thou/uL (130-400); RBC Distribution Width 14.7 % (11.5-14.5); Red Blood Cell (RBC) Count 3.26 mill/uL (4.20-5.40); White Blood Cell (WBC) Count 5.5 thou/uL (4.8-10.8)
[2022-01-13] MEDS: HumaLOG 300 UNITS/3 ML VIAL SC PRN ×4 (05:53→20:32)
[2022-01-13 07:01] LABS: PTT Greater than 250.0 sec (22.9-36.1)
[2022-01-13] MEDS ORDERED: Loperamide HCl 2 MG CAP PO PRN (07:55)
[2022-01-13] MEDS ORDERED: Calcium Carbonate 500 MG ChewTAB PO PRN (07:55)
[2022-01-13] MEDS ORDERED: GUAIFENESIN SF SOLN 200 MG/10 ML UDCUP PO PRN (07:55)
[2022-01-13] MEDS ORDERED: Cepastat Lozenges 1 LOZ PO PRN (07:55)
[2022-01-13] MEDS ORDERED: Sodium Chloride 0.65% Nasal 44 ML BOT EA NARE PRN (07:55)
[2022-01-13] MEDS ORDERED: Loratadine 10 MG TAB PO PRN (07:55)
[2022-01-13] MEDS ORDERED: Senokot S 8.6-50 MG TAB PO PRN (07:55)
[2022-01-13] MEDS ORDERED: Insulin Glargine 30 UNITS/0.3 ML VIAL SC SCH ×2 (07:59→21:00)
[2022-01-13] MEDS ORDERED: Acetaminophen 500 MG TAB PO PRN (08:00)
[2022-01-13 08:22] LABS: #Eosinphils 0.1 thou/uL (0.0-0.7); #Lymphocytes 0.9 thou/uL (1.20-3.40); #Monocytes 0.4 thou/uL (0.11-0.59); #Neutrophils 2.2 thou/uL (1.40-6.50); %Basophils 0.6 % (0.0-1.0); %Lymphocytes 25.2 % (21.0-51.0); %Monocytes 10.7 % (0.0-10.0); %Neutrophils 61.4 % (42.0-75.0); Hemoglobin 7.9 g/dL (12.0-16.0); Mean Corpuscular HGB CONC 31.6 g/dL (32.0-36.0); Mean Corpuscular Hemoglobin 30.4 pg (27.0-31.0); Mean Corpuscular Volume 96.1 fL (78.0-98.0); Mean Platelet Volume 7.1 fL (7.4-10.4); Platelet Count 144 thou/uL (130-400); RBC Distribution Width 14.6 % (11.5-14.5); Red Blood Cell (RBC) Count 2.58 mill/uL (4.20-5.40); White Blood Cell (WBC) Count 3.5 thou/uL (4.8-10.8)
[2022-01-13 08:35] LABS: D-Dimer Test 0.56 *mcg/mL (0.27-0.43)
[2022-01-13 08:39] LABS: PTT 192.7 sec (22.9-36.1)
[2022-01-13 08:43] LABS: Lactic Acid 13.3 mmol/L (0.5-2.2)
[2022-01-13 08:50] LABS: Anion Gap 18 mmol/L (10-20); BUN (Urea Nitrogen) 5 mg/dL (7.0-18.7); Calc. Creatinine Clearance 269 mL/min (70-130); Calcium 7.2 mg/dL (7.8-10.44); Carbon Dioxide 16 mmol/L (22-29); Chloride 102 mmol/L (98-107); Glucose 195 mg/dL (70-105); Magnesium 0.7 mg/dL (1.6-2.6); Potassium 4.1 mmol/L (3.5-5.1); Sodium 132 mmol/L (136-145)
[2022-01-13] MEDS ORDERED: Iopamidol 370 76% 100 ML VIAL ONE (08:54)
[2022-01-13] MEDS: Famotidine 20 MG TAB PO SCH ×2 (08:58→20:30)
[2022-01-13] MEDS: Insulin Glargine 30 UNITS/0.3 ML VIAL SC SCH ×2 (09:00→09:12)
[2022-01-13] MEDS: Morphine 4 MG/ML VIAL SLOW IVP PRN ×3 (09:00→23:54)
[2022-01-13] MEDS ORDERED: Enoxaparin Sodium 40 MG/0.4 ML SYRINGE SC SCH (09:00)
[2022-01-13] MEDS ORDERED: Magnesium Sulfate 4 GM in Sodium Chloride 0.9% 250 ML 250 ML IVPB SCH (10:00)
[2022-01-13] MEDS: Sodium Chloride 0.9% 1,000 ML IV SCH ×2 (10:31→20:34)
[2022-01-13] MEDS: cefTRIAXone\\ROCEPHIN 1 GM in Sodium Chloride 0.9% 100 ML IVPB SCH (12:02)
[2022-01-13] MEDS: Ondansetron PF 4 MG/2 ML Vial IVP PRN (15:30)
[2022-01-14] MEDS: HYDROcodone/Acetaminophen 5/325 mg Tablet PO PRN ×3 (02:53→18:11)
[2022-01-14 05:04] LABS: Lactic Acid 0.9 mmol/L (0.5-2.2)
[2022-01-14] MEDS: Sodium Chloride 0.9% 1,000 ML IV SCH ×2 (06:43→13:46)
[2022-01-14] MEDS: HumaLOG 300 UNITS/3 ML VIAL SC PRN ×4 (06:46→20:57)
[2022-01-14] MEDS: Morphine 4 MG/ML VIAL SLOW IVP PRN ×2 (06:53→12:42)
[2022-01-14 08:30] LABS: #Eosinphils 0.1 thou/uL (0.0-0.7); #Lymphocytes 1.1 thou/uL (1.20-3.40); #Monocytes 0.6 thou/uL (0.11-0.59); %Basophils 0.2 % (0.0-1.0); %Eosinophils 1.7 % (0.0-10.0); %Lymphocytes 15.9 % (21.0-51.0); %Monocytes 9.3 % (0.0-10.0); %Neutrophils 72.9 % (42.0-75.0); Hemoglobin 11.9 g/dL (12.0-16.0); Mean Corpuscular HGB CONC 31.6 g/dL (32.0-36.0); Mean Corpuscular Hemoglobin 30.3 pg (27.0-31.0); Mean Corpuscular Volume 95.9 fL (78.0-98.0); Mean Platelet Volume 7.1 fL (7.4-10.4); Platelet Count 236 thou/uL (130-400); RBC Distribution Width 14.4 % (11.5-14.5); Red Blood Cell (RBC) Count 3.92 mill/uL (4.20-5.40); White Blood Cell (WBC) Count 6.9 thou/uL (4.8-10.8)
[2022-01-14 08:40] LABS: Albumin 3.7 g/dL (3.5-5.0)
[2022-01-14 08:41] LABS: Chloride 103 mmol/L (98-107); Potassium 4.2 mmol/L (3.5-5.1)
[2022-01-14 08:42] LABS: Sodium 135 mmol/L (136-145)
[2022-01-14 08:43] LABS: Globulin 3.2 g/dL (2.4-3.5); Glucose 260 mg/dL (70-105)
[2022-01-14 08:44] LABS: Anion Gap 14 mmol/L (10-20); Carbon Dioxide 22 mmol/L (22-29)
[2022-01-14 08:45] LABS: Bilirubin, Total 0.3 mg/dL (0.2-1.2)
[2022-01-14 08:46] LABS: Alkaline Phosphatase 56 U/L (40-110)
[2022-01-14 08:47] LABS: BUN (Urea Nitrogen) 6 mg/dL (7.0-18.7)
[2022-01-14 08:48] LABS: AST (SGOT) 15 U/L (5-34); Calc. Creatinine Clearance 176 mL/min (70-130); Calcium 8.6 mg/dL (7.8-10.44); Phosphorus 2.6 mg/dL (2.3-4.7); Protein, Total 6.9 g/dL (6.0-8.3)
[2022-01-14 08:49] LABS: ALT (SGPT) 25 U/L (8-55); Magnesium 1.6 mg/dL (1.6-2.6)
[2022-01-14] MEDS ORDERED: Insulin Glargine 30 UNITS/0.3 ML VIAL SC SCH (09:00)
[2022-01-14] MEDS: Alogliptin 25 MG TAB PO SCH (09:02)
[2022-01-14] MEDS: Ondansetron PF 4 MG/2 ML Vial IVP PRN (10:07)
[2022-01-14] MEDS: cefTRIAXone\\ROCEPHIN 1 GM in Sodium Chloride 0.9% 100 ML IVPB SCH (12:42)
[2022-01-14] MEDS: Insulin Glargine 30 UNITS/0.3 ML VIAL SC SCH (20:56)
[2022-01-15] MEDS: HYDROcodone/Acetaminophen 5/325 mg Tablet PO PRN ×4 (00:15→20:02)
[2022-01-15] MEDS: Sodium Chloride 0.9% 1,000 ML IV SCH ×3 (02:10→21:08)
[2022-01-15] MEDS: HumaLOG 300 UNITS/3 ML VIAL SC PRN ×4 (06:05→21:11)
[2022-01-15] MEDS: Alogliptin 25 MG TAB PO SCH (09:43)
[2022-01-15] MEDS: Insulin Glargine 30 UNITS/0.3 ML VIAL SC SCH ×2 (09:43→21:10)
[2022-01-15] MEDS ORDERED: Senokot S 8.6-50 MG TAB PO SCH (10:15)
[2022-01-15] MEDS ORDERED: NPH, Human Insulin Isophane 300 UNIT/3 ML VIAL SC SCH (13:15)
[2022-01-15] MEDS: Metoprolol Tartrate 25 MG TAB PO SCH (20:03)
[2022-01-15] MEDS ORDERED: Insulin Glargine 30 UNITS/0.3 ML VIAL SC SCH (21:00)
[2022-01-15] MEDS: Senokot S 8.6-50 MG TAB PO SCH (21:12)
[2022-01-16] MEDS: HYDROcodone/Acetaminophen 5/325 mg Tablet PO PRN ×2 (00:24→07:26)
[2022-01-16 04:34] LABS: #Eosinphils 0.1 thou/uL (0.0-0.7); #Lymphocytes 1.2 thou/uL (1.20-3.40); #Monocytes 0.7 thou/uL (0.11-0.59); #Neutrophils 6.1 thou/uL (1.40-6.50); %Basophils 0.5 % (0.0-1.0); %Eosinophils 1.5 % (0.0-10.0); %Lymphocytes 14.3 % (21.0-51.0); %Monocytes 9.1 % (0.0-10.0); %Neutrophils 74.8 % (42.0-75.0); Mean Corpuscular HGB CONC 32.7 g/dL (32.0-36.0); Mean Platelet Volume 7.2 fL (7.4-10.4); Platelet Count 260 thou/uL (130-400); RBC Distribution Width 14.5 % (11.5-14.5); Red Blood Cell (RBC) Count 3.86 mill/uL (4.20-5.40); White Blood Cell (WBC) Count 8.2 thou/uL (4.8-10.8)
[2022-01-16 04:56] LABS: Anion Gap 16 mmol/L (10-20); BUN (Urea Nitrogen) 8 mg/dL (7.0-18.7); Calc. Creatinine Clearance 179 mL/min (70-130); Calcium 8.5 mg/dL (7.8-10.44); Carbon Dioxide 18 mmol/L (22-29); Chloride 105 mmol/L (98-107); Glucose 290 mg/dL (70-105); Potassium 4.3 mmol/L (3.5-5.1); Sodium 135 mmol/L (136-145)
[2022-01-16] MEDS: HumaLOG 300 UNITS/3 ML VIAL SC PRN (06:14)
[2022-01-16] MEDS: Sodium Chloride 0.9% 1,000 ML IV SCH (06:17)
[2022-01-16 08:24] VITALS: BP 127/81; TEMP 98
[2022-01-16] MEDS ORDERED: FLUoxetine HCl 20 MG CAP PO SCH (09:30)
[2022-01-16] MEDS: Insulin Glargine 30 UNITS/0.3 ML VIAL SC SCH (09:43)
[2022-01-16] MEDS: Alogliptin 25 MG TAB PO SCH (09:43)
[2022-01-16] MEDS: Metoprolol Tartrate 25 MG TAB PO SCH (09:43)
[2022-01-16] MEDS: Senokot S 8.6-50 MG TAB PO SCH (09:43)
[2022-01-17] MEDS ORDERED: FLUoxetine HCl 20 MG CAP PO SCH (09:00)
== END 2022-01-16 11:52 | disposition home or self-care (01) | DRG 435 ==
LOC: 2NO 16:16
PROVIDERS: ADMIT Internal Medicine; ATTEND Internal Medicine
DX: C78.7 Secondary malignant neoplasm of liver and intrahepatic bile duct (principal); E11.10 Type 2 diabetes mellitus with ketoacidosis without coma; C79.51 Secondary malignant neoplasm of bone; Z20.822 Contact with and (suspected) exposure to COVID-19; Z51.5 Encounter for palliative care; C50.911 Malignant neoplasm of unspecified site of right female breast; E11.65 Type 2 diabetes mellitus with hyperglycemia; K21.9 Gastro-esophageal reflux disease without esophagitis; E83.42 Hypomagnesemia; D64.81 Anemia due to antineoplastic chemotherapy; T45.1X5A Adverse effect of antineoplastic and immunosuppressive drugs, initial encounter; E78.5 Hyperlipidemia, unspecified; F39 Unspecified mood [affective] disorder; E66.9 Obesity, unspecified; M79.7 Fibromyalgia; I10 Essential (primary) hypertension; G89.4 Chronic pain syndrome; Z79.84 Long term (current) use of oral hypoglycemic drugs; Z79.4 Long term (current) use of insulin; Z79.899 Other long term (current) drug therapy; Z87.891 Personal history of nicotine dependence; Z88.8 Allergy status to other drugs, medicaments and biological substances; Z68.35 Body mass index [BMI] 35.0-35.9, adult
CPT/HCPCS: 36415; 36416; 71045; 71275; 80048; 80053; 81001; 81025; 82010; 83036; 83605; 83615; 83735; 84100; 84550; 85025; 85379; 85730; 87040; 87086; 93005; 93010; 93306; 93970; J0696; J1642; J1644; J1650; J1815; J2270; J2405; J3475; J3490; J7050; J7120; Q9967; U0003; U0005

== ENCOUNTER 2022-03-04 08:52 | Outpatient (CLI) | payer OTHER ==
[2022-03-04] MEDS ORDERED: Iopamidol 370 76% 100 ML VIAL ONE (13:33)
== END 2022-03-04 08:53 | disposition home or self-care (01) ==
LOC: CT 08:52
PROVIDERS: ATTEND Internal Medicine Hematology & Oncology
DX: C50.411 Malignant neoplasm of upper-outer quadrant of right female breast (principal); C79.51 Secondary malignant neoplasm of bone; C78.7 Secondary malignant neoplasm of liver and intrahepatic bile duct; K76.9 Liver disease, unspecified; M89.9 Disorder of bone, unspecified; J98.4 Other disorders of lung; E04.2 Nontoxic multinodular goiter; I70.0 Atherosclerosis of aorta; Z90.11 Acquired absence of right breast and nipple
CPT/HCPCS: 71260; 74177; 78306; A9503; Q9967

== ENCOUNTER 2022-03-08 11:54 | Outpatient (CLI) | payer OTHER | END 2022-03-08 11:55 | disposition home or self-care (01) | LOC: LABBT 11:54 | PROVIDERS: ATTEND Internal Medicine Hematology & Oncology | DX: Z20.822 Contact with and (suspected) exposure to COVID-19 (principal) | CPT/HCPCS: 87811 ==

== ENCOUNTER → 2022-03-22 | Day surgery (SDC) | payer OTHER ==
[2022-03-12 08:33] VITALS: BMI 33.5
[2022-03-22 08:36] LABS: #Eosinphils 0.1 thou/uL (0.0-0.7); #Lymphocytes 0.7 thou/uL (1.20-3.40); #Monocytes 0.6 thou/uL (0.11-0.59); #Neutrophils 3.7 thou/uL (1.40-6.50); %Basophils 0.3 % (0.0-1.0); %Eosinophils 1.3 % (0.0-10.0); %Lymphocytes 14.1 % (21.0-51.0); %Monocytes 11.6 % (0.0-10.0); %Neutrophils 72.7 % (42.0-75.0); Hemoglobin 12.6 g/dL (12.0-16.0); Mean Corpuscular HGB CONC 32.4 g/dL (32.0-36.0); Mean Corpuscular Hemoglobin 29.2 pg (27.0-31.0); Mean Platelet Volume 7.8 fL (7.4-10.4); Platelet Count 164 thou/uL (130-400); RBC Distribution Width 13.7 % (11.5-14.5); Red Blood Cell (RBC) Count 4.32 mill/uL (4.20-5.40); White Blood Cell (WBC) Count 5.1 thou/uL (4.8-10.8)
[2022-03-22 08:57] LABS: INR-International Normal Ratio 1.1
[2022-03-22 12:12] VITALS: BP 116/65; TEMP 98.1
== END | disposition home or self-care (01) ==
LOC: CT 08:16
PROVIDERS: ATTEND Internal Medicine Hematology & Oncology
PROC: 0FB13ZX Excision of Right Lobe Liver, Percutaneous Approach, Diagnostic (ICD-10-PCS; principal; 2022-03-22)
DX: C78.7 Secondary malignant neoplasm of liver and intrahepatic bile duct (principal); C50.411 Malignant neoplasm of upper-outer quadrant of right female breast; C79.51 Secondary malignant neoplasm of bone; M79.7 Fibromyalgia; G47.33 Obstructive sleep apnea (adult) (pediatric); I10 Essential (primary) hypertension; E11.40 Type 2 diabetes mellitus with diabetic neuropathy, unspecified; E78.5 Hyperlipidemia, unspecified; Z17.1 Estrogen receptor negative status [ER-]; Z87.891 Personal history of nicotine dependence; Z79.4 Long term (current) use of insulin; Z79.84 Long term (current) use of oral hypoglycemic drugs; Z79.899 Other long term (current) drug therapy; Z88.8 Allergy status to other drugs, medicaments and biological substances
CPT/HCPCS: 36415; 47000; 77012; 85025; 85610; 85730; 88307; 88333; 88334; 88341; 88342

== ENCOUNTER 2022-06-03 07:55 | Outpatient (CLI) | payer OTHER ==
[2022-06-03] MEDS ORDERED: Iopamidol 370 76% 100 ML VIAL ONE (12:09)
== END 2022-06-03 07:56 | disposition home or self-care (01) ==
LOC: CT 07:55
PROVIDERS: ATTEND Internal Medicine Hematology & Oncology
DX: C50.411 Malignant neoplasm of upper-outer quadrant of right female breast (principal); C79.51 Secondary malignant neoplasm of bone; C78.7 Secondary malignant neoplasm of liver and intrahepatic bile duct; R16.0 Hepatomegaly, not elsewhere classified; E04.1 Nontoxic single thyroid nodule; E07.89 Other specified disorders of thyroid; Z98.890 Other specified postprocedural states; Z90.11 Acquired absence of right breast and nipple
CPT/HCPCS: 71260; 74177; 82565; Q9967

== ENCOUNTER 2022-07-18 07:19 | Outpatient (CLI) | payer OTHER ==
[2022-07-18] MEDS ORDERED: Iopamidol 370 76% 100 ML VIAL ONE (15:47)
== END 2022-07-18 07:20 | disposition home or self-care (01) ==
LOC: CT 07:19
PROVIDERS: ATTEND Internal Medicine Hematology & Oncology
DX: C50.411 Malignant neoplasm of upper-outer quadrant of right female breast (principal); C79.51 Secondary malignant neoplasm of bone; M89.9 Disorder of bone, unspecified
CPT/HCPCS: 78306; A9503; Q9967

== ENCOUNTER 2022-08-19 07:42 | Outpatient (CLI) | payer OTHER ==
[2022-08-19] MEDS ORDERED: Iopamidol 370 76% 100 ML VIAL ONE (08:49)
== END 2022-08-19 07:43 | disposition home or self-care (01) ==
LOC: CT 07:42
PROVIDERS: ATTEND Internal Medicine Hematology & Oncology
DX: C50.411 Malignant neoplasm of upper-outer quadrant of right female breast (principal); C79.51 Secondary malignant neoplasm of bone; J90 Pleural effusion, not elsewhere classified; E07.89 Other specified disorders of thyroid; J98.4 Other disorders of lung; R16.1 Splenomegaly, not elsewhere classified
CPT/HCPCS: 71260; 74177; Q9967